=== PATIENT | male | born 1940 | race Caucasian/White ===

== ENCOUNTER 2019-01-10 15:50 | Inpatient (IN) | payer OTHER ==
[~2019-01-10] VITALS: Ht 180.3 cm; Wt 66.7 kg
[~2019-01-10 15:50] MED LIST: ASPIRIN EC325 M1 PO; ASPIRIN EC81 M1 PO; AVODART0.5 MG PO; CLOPIDOGREL75 MG PO; FLEXERIL PO; LEXAPRO20 MG PO; LYRICA200 MG PO; NEXIUM40 MG PO; RANEXA 500 MG500 M1 PO; SPIRIVA INH; TOPROL XL50 MG PO; UROXATRAL PO; XANAX 0.5 MG0.5 M1 PO; [UNRECOGNIZED DRUG - CODE] PO
[2019-01-10 16:30] VITALS: BP 146/58
[2019-01-10 17:26] LABS: HEMATOCRIT 35.9 % (42.0-52.0); HEMOGLOBIN 11.9 gm/dL (14.0-18.0); MCH 31.7 pg (26.0-34.0); MCHC 33.2 g/dL (28.0-37.0); MCV 95.3 fL (80.0-100.0); RBC 3.77 mil/uL (4.50-6.00); RDW 15.6 % (10.5-14.5); WBC 8.8 thou/uL (4.0-11.0)
[2019-01-10 17:41] LABS: CALCIUM 9.9 mg/dL (8.5-10.1); CREATININE 2.2 mg/dL (0.7-1.3); POTASSIUM 4.9 mmol/L (3.5-5.1)
[2019-01-10 17:43] LABS: INR 1.2; PROTIME 12.8 Seconds (9.3-11.4)
[2019-01-10 17:47] LABS: ALBUMIN 3.7 g/dL (3.4-5.0); TOTAL BILIRUBIN 0.5 mg/dL (<0.1-1.0); TOTAL PROTEIN 7.1 g/dL (6.4-8.2)
--- NOTE | 2019-01-10 18:51 | NUR ---
PT CARE ASSUMED APPROX 1530. PT DIRECT ADMIT UNDER DR MCCLELLAND FROM DR ECHEVARRIA'S OFFICE FOR BRADYCARDIA. PT NOTED TO BE IN AFLUTTER ON ARRIVAL. PT VS DIFFICULT TO OBTAIN DUE TO HR BEING VERY LOW. HR 20s. VS OTHERIWSE STABLE. PT ASYMPTOMATIC AT THIS TIME. STAS WAS INITIALLY WANTING TO SEND PT TO ICU AND PUT TO DOPAMINE GTT BUT ORDERS CHANGED AFTER VS GIVEN TO DR ECHEVARRIA'S NURSE. PT STABLE. DENIES PAIN AND SOA. UP WITH STEADY GAIT. ORIENTED TO UNIT AND ROOM. PT DENIES QUESTIONS OR CONCERNS REGARDING POC. IV PLACED 20G TO RIGHT FA. NO DISTRESS NOTED.
[2019-01-10 19:02] LABS: URINE BILIRUBIN NEGATIVE (Negative); URINE BLOOD TRACE (Negative); URINE CLARITY SL HAZY; URINE COLOR YELLOW; URINE GLUCOSE-RANDOM* NEGATIVE (Negative); URINE KETONES NEGATIVE (Negative); URINE LEUKOCYTES 2+ (Negative); URINE NITRITE NEGATIVE (Negative); URINE PROTEIN (DIPSTICK) 1+ (Negative); URINE UROBILINOGEN 0.2 E.U./dl (0.2-1.0)
[2019-01-10 19:04] LABS: BACTERIA 1-9 Few /HPF (None Seen); CASTS None Seen /LPF (None Seen); CRYSTALS None Seen /LPF (None Seen); SQUAMOUS None Seen /LPF (0-3); URINE RBC 0-2 Rare /HPF (0-2); URINE WBC 6-15 Few /HPF (0-5)
[2019-01-10 19:53] VITALS: BP 159/51
[2019-01-11] VITALS (7 sets, daily range): BP systolic 127–175; BP diastolic 46–70
--- NOTE | 2019-01-11 01:41 | NUR ---
PATIENT AOX4 MAKES NEEDS KNOWN. PATIENT HAS LOW PULSE OF <30 PATIENT IS STABLE THIS SHIFT. PATIENT DENIED PAIN OR DISCOMFORT. PATIENT IS STAND BY ASSIST THIS SHIFT. PATIENT AMBULATES TO THE BATHROOM WITH STEADY GAITS. PATIENT IN BED ASLEEP AT THIS TIME BREATHING REGULAR AND UNLABOURED.
--- NOTE | 2019-01-11 10:29 | 2DMMODE ---
[place] [address] [employer] [facility] [place] [address] 2 D/M-MODE ECHOCARDIOGRAM Name: DULCE CACERES A Room #: 214-P ADM IN .R.#: [id number] ������������� Admission: 01/10/19 ������������� Attend Phys: Adina Villalba MD Discharge: ��� ������������� ��� Date of : 38 Date of Service: 01/11/19 1029 �� Report #: [id number] �������� ��������������������������������������������[id number] THIS REPORT FOR: //name// APPROVED REPORT Study performed: 01/11/2019 08:12:42 EXAM: Comprehensive 2D, Doppler, and color-flow Echocardiogram Patient Location: Bedside Room #: 214 Status: on-call BSA: 1.82 HR: 28 bpm BP: 163/67 mmHg Rhythm: Atrial Fibrillation with slow response Other Information Study Quality: Good Indications Atrial Fibrillation Hx: CABG, Afib, TIA, HTN. 2D Dimensions RVDd: 42.66 mm IVSd: 11.48 (7-11mm) LVOT Diam: 23.33 (18-24mm) LVDd: 48.85 mm PWd: 11.41 (7-11mm) Ascending Ao: 39.81 (22-36mm) LVDs: 32.29 (25-40mm) Aortic Root: 37.89 mm Volumes Left Atrial Volume (Systole) Single Plane 4CH: 68.48 mL Single Plane 2CH: 87.69 mL LA ESV Index: 45.00 mL/m2 Aortic Valve AoV Peak Negrito.: 2.48 m/s AO Peak Gr.: 24.59 mmHg LVOT Max P.54 mmHg AO Mean Gr.: 9.69 mmHg AO V2 Mean: 1.41 m/s LVOT Max V: 0.80 m/s AO V2 VTI: 48.93 cm LONI Vmax: 1.37 cm2 Mitral Valve [facility] [address] [place] [address] 2 D/M-MODE ECHOCARDIOGRAM Name: DULCE CACERES Room #: 214-[facility] IN M.R.#: [id number] ������������� Admission: 01/10/19 ������������� Attend Phys: Adina Villalba MD Discharge: ��� ������������� ��� Date of : 39 Date of Service: 01/11/19 1029 �� Report #: [id number] �������� ��������������������������������������������[id number] MV Decel. Time: 139.94 ms MV E Max Negrito.: 1.07 m/s IVRT: 117.65 ms Pulmonary Valve PV Peak Negrito.: 0.93 m/s PV Peak Gr.: 3.44 mmHg Tricuspid Valve TR Peak Negrito.: 4.14 m/s RAP Estimate: 10.00 mmHg TR Peak Gr.: 68.49 mmHg PA Pressure: 78.00 mmHg Left Ventricle The left ventricle is normal size. There is normal LV segmental wall motion. There is normal left ventricular wall thickness. Left ventricular systolic function is normal. Mild hypokinesis base of inferior and inferolateral gutierrez. LVEF is 50-55%. This study is not technically sufficient to allow evaluation of the LV diastolic function. Right Ventricle Right ventricle is mildly dilated. The right ventricular systolic function is normal. Atria Left atrium is severely dilated. Right atrium is moderately dilated. Aortic Valve Aortic valve is moderately calcified. Mild to moderate aortic regurgitation. There is mild valvular aortic stenosis. Calculated aortic valve area is 1.4 cm2 with maximum pressure gradient of 25 mmHg and mean pressure gradient of 10 mmHg. Mitral Valve Moderate mitral annular calcification. Moderate mitral regurgitation. No evidence of mitral valve stenosis. Tricuspid Valve The tricuspid valve is normal in structure. Mild to moderate tricuspid regurgitation. Estimated PAP is 75mmHg. Pulmonic Valve The pulmonary valve is normal in structure. Trace to mild pulmonic regurgitation. [address] [address] 2 D/M-MODE ECHOCARDIOGRAM Name: DULCE CACERES David Room #: 214-P [facility] IN .R.#: [id number] ������������� Admission: 01/10/19 ������������� Attend Phys: Adina Villalba MD Discharge: ��� ������������� ��� Date of : 39 Date of Service: 01/11/19 1029 �� Report #: [id number] �������� ��������������������������������������������[id number] [employer] Aortic root is borderline dilated. The ascending aorta is mildly dilated (4.0cm). IVC is normal in size and collapses <50% with inspiration. Pericardium There is no pericardial effusion. <Conclusion> Left ventricular systolic function is normal. Mild hypokinesis base of inferior and inferolateral gutierrez. LVEF is 50-55%. Both atria are dilated. Aortic valve is moderately calcified, mildy stenotic. Mild to moderate aortic regurgitation.. Calculated aortic valve area is 1.4 cm2 with maximum pressure gradient of 25 mmHg and mean pressure gradient of 10 mmHg. Moderate mitral annular calcification. Moderate mitral regurgitation. Mild to moderate tricuspid regurgitation. Estimated pulmonary artery pressure of 75mmHg. There is no pericardial effusion. ��������������������������������������������� <ELECTRONICALLY SIGNED> ���������������������������������������� By: Micah Zavala MD, [facility] ��������������������������������������������� 01/11/19 1029 1029 1029 Micah Zavala MD, FAC /INF
--- NOTE | 2019-01-11 11:27 | EKG ---
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1940 Requested By: Micah Zavala Order Number: [id number] MD: Micah Zavala Measurements Intervals Jo[place] Rate: 28 P: [place]: QRS: 144 QRSD: 192 T: 23 QT: 676 QTc: 462 Interpretive Statements A-flutter/fibrillation w/ complete AV block RBBB and LPFB Compared to ECG 03/25/2012 11:22:15 Ventricular response has slowed axis has shifted rightward Electronically Signed On 01-11-2019 11:27:31 CDT by Micah Zavala [email or web address] ��������������������������������������������� <ELECTRONICALLY SIGNED> ���������������������������������������� By: Micah Zavala MD, [facility] ��������������������������������������������� 01/11/19 1127 0803 0803 Micah Zavala MD, [facility] /EPI
--- NOTE | 2019-01-11 16:29 | NUR ---
ASSUMED CARE AT CHANGE, ALERT AND ORIENTED X4. CHB ON THE MONITOR HR 28-40/MIN AND DR ECHEVARRIA IS AWARE. DENIES CP AND VSS. PATIENT ASYMPTOMATIC. AND WILL CONTINUE WITH POC.
[2019-01-12 04:30] VITALS: BP 163/84
--- NOTE | 2019-01-12 05:14 | NUR ---
PATIENTS CARES WERE ASSUMED AT SHIFT CHANGE. PATIENT WAS ASSESSED AND MEDS WERE PASSED. PATIENT REMAINS IN BEDREST DUE TO LOW HEART RATE. THEACHING FOCUS WAS ON CONSERVING ENERGY. PATIENT WILL NOT GET HEART SURGERY UNTIL sunday. HEART RATE IS 46 AT THIS TIME. HOURLY ROUNDING WAS DONE . PATIENT DID APPER TO BE SLEEPING. THE BED IS IN A LOW AND LOCKED POSITION, THE BED ALARM IS ON.
[2019-01-12 05:16] LABS: HEMATOCRIT 37.3 % (42.0-52.0); HEMOGLOBIN 12.4 gm/dL (14.0-18.0); MCH 31.7 pg (26.0-34.0); MCHC 33.2 g/dL (28.0-37.0); MCV 95.4 fL (80.0-100.0); RBC 3.91 mil/uL (4.50-6.00); RDW 15.8 % (10.5-14.5); WBC 10.1 thou/uL (4.0-11.0)
[2019-01-12 05:56] LABS: CALCIUM 9.7 mg/dL (8.5-10.1); CREATININE 1.8 mg/dL (0.7-1.3); POTASSIUM 4.3 mmol/L (3.5-5.1); TROPONIN-I 0.19 ng/mL (<0.06)
[2019-01-12 07:48] VITALS: BP 162/54
--- NOTE | 2019-01-12 09:58 | EKG ---
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 : 1940 Requested By: Micah Zavala Order Number: [id number] MD: Micah Zavala Measurements Intervals [place] Rate: 36 P: [place]: QRS: 104 QRSD: 143 T: 66 QT: 675 QTc: 523 Interpretive Statements Atrial fibrillation with a slow ventricular response Right bundle branch block Compared to ECG 01/11/2019 08:03:19 no significant change was found Electronically Signed On 01-12-2019 9:58:39 CDT by Micah Zavala [email or web address] ��������������������������������������������� <ELECTRONICALLY SIGNED> ���������������������������������������� By: Micah Zavala MD, [facility] ��������������������������������������������� 01/12/19 0958 4 4 Micah Zavala MD, [facility] /EPI
[2019-01-12 11:36] VITALS: BP 181/59
[2019-01-12 16:54] VITALS: BP 171/68
--- NOTE | 2019-01-12 17:42 | NUR ---
ASSUMED CARE AT SHIFT CHANGE, ALERT AND ORINETED X4. ASSESMENT DOCUMENTED. HEART RATE REMAINS LOW,ANXIOUS ABOUT TOMORROW PROCEDURE. PROCEDURE TEACHING WAS DONE AND PATIENT'S CONCERNS ADDRESSED. AND WILL CONTINUE WITH POC.
[2019-01-12 19:32] VITALS: BP 161/56
[2019-01-13] VITALS (7 sets, daily range): BP systolic 121–177; BP diastolic 50–89
[2019-01-13 04:54] LABS: CALCIUM 10.1 mg/dL (8.5-10.1); CREATININE 1.6 mg/dL (0.7-1.3); POTASSIUM 4.6 mmol/L (3.5-5.1)
--- NOTE | 2019-01-13 07:34 | NUR ---
pt anxiouse about pacemaker placement much reassurance and teaching done, am hibicleans bath given, vss, hr as low as 29, npo since mnoc, will con't to monitor per ppoc.
--- NOTE | 2019-01-13 08:00 | HC ---
[facility] [place] [address] CONSULTATION Name: DULCE CACERES Room #: 214-P ADM IN .R.#: [id number] Admission: 01/10/19 ������������������ Attend Phys: Adina Villalba MD Discharge: ������������������ Date of : 39 Report #: [id number] THIS REPORT FOR: //name// CC: Jc Villalba DATE OF SERVICE: 01/10/2019 REASON FOR CONSULTATION: Syncope. HISTORY OF PRESENT ILLNESS: The patient is a 78-year-old gentleman with a complicated history including bypass surgery in 2011 with a left internal mammary to the LAD, vein graft to the first and second marginal branches. His post-bypass course was complicated by atrial fibrillation, encephalopathy and acute kidney injury. His history also includes a TIA. It was around this same time that he was found to be back in atrial fibrillation and anticoagulant therapy with apixaban was started. He now presents following a syncopal episode. Last week, he suddenly lost consciousness. He crawled to his blood pressure cuff and found that his blood pressure was normal, but his heart rate was 28. He has felt poorly over the past week with exertional fatigue and occasional lightheadedness. He called the office today reporting that he thought that he was in heart block and he was seen in the office at which time he was found to be in atrial fibrillation with a very slow ventricular response. He has been on no AV annia blocking medications. He is now admitted for further evaluation and treatment including a pacemaker implantation. His last dose of apixaban was earlier this morning. He denies orthopnea or paroxysmal nocturnal dyspnea. No history of recurrent chest heaviness or pressure. MEDICATIONS: Include alprazolam, apixaban 5 mg twice daily, aspirin 81 mg daily, Flexeril as needed, Lasix 40 mg daily, losartan 100 mg daily, fish oil, AndroGel and tramadol as needed. 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 SOCIAL HISTORY: He is a former smoker. 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 FAMILY HISTORY: Notable for several parents with heart disease. Brother with cancer. REVIEW OF SYSTEMS: All systems negative except as that noted above. PHYSICAL EXAMINATION: [facility] [address] [place] [address] CONSULTATION Name: DULCE CACERES Room #: 214-P [facility] IN .R.#: [id number] Admission: 01/10/19 ������������������ Attend Phys: Adina Villalba MD Discharge: ������������������ Date of : 39 Report #: [id number] GENERAL: Reveals a pleasant elderly gentleman, in no distress. VITAL SIGNS: Blood pressure is 105/70, heart rate of 30 and regular, respirations unlabored at 18. HEENT: There are neither xanthelasma, subcutaneous xanthomata, oral mucosal or digital cyanosis or kyphoscoliosis present. CHEST: Clear to auscultation and percussion. CARDIAC: An irregularly irregular rhythm with a normal S1, S2. Heart rate is very bradycardic. ABDOMEN: Soft and nontender. EXTREMITIES: Without cyanosis, clubbing or edema. Radial pulses are 2+. NEUROLOGIC: He is alert with a nonfocal exam. EKG, atrial fibrillation with a slow ventricular response. LABORATORY DATA: Blood work remains pending. IMPRESSION: 1. Atrial fibrillation with a slow ventricular response with associated syncope. 2. Permanent atrial fibrillation. 3. Coronary artery disease with remote bypass. 4. Chronic obstructive pulmonary disease. 5. Dyslipidemia. 6. Hypertension, remote cardioembolic transient ischemic attack. 7. 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 8. Hypercoagulable. RECOMMENDATIONS: 1. Avoid AV annia blocking medications. 2. Echocardiogram with Doppler. 3. Thyroid function studies. 4. Consultation for single lead pacemaker implantation. My hope is to avoid temporary transvenous pacing. ��������������������������������������������� <ELECTRONICALLY SIGNED> ���������������������������������������� By: Micah Zavala MD, [facility] ��������������������������������������������� 01/13/19 0800 1620 2338 Micah Zavala MD, FACC /nt
--- NOTE | 2019-01-13 12:16 | EKG ---
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1940 Requested By: Otto Sagastume Order Number: [id number] MD: Otto Sagastume Measurements Intervals [place] Rate: 48 P: [place]: QRS: 144 QRSD: 188 T: 9 QT: 676 QTc: 605 Interpretive Statements A-flutter/fibrillation w/ complete AV block RBBB and LPFB Compared to ECG 01/12/2019 07:05:59 Electronically Signed On 01-13-2019 12:15:47 CDT by Otto Sagastume [email or web address] ��������������������������������������������� <ELECTRONICALLY SIGNED> ���������������������������������������� By: Otto Sagastume MD ��������������������������������������������� 01/13/19 1215 0857 0857 Otto Sagastume MD /BRII
--- NOTE | 2019-01-13 19:53 | NUR ---
ASSUMED CARE AT [facility] CHANGE, ALERT AND ORIENTED X4. BRADYCARDIAC, BP ELEVATEDAND DR MCMILLAN. S/P PACER MAKER TODAY, RT GRION SITE AND LT UPPER CHEST INTACT. PLS SEE POST CARDIAC CATH FOLLOW SHEET. LT ARM SLING INPLACE, AND PATIENT UNDERSTANDS THAT HE NEEDS TO KEEP LT ARM SLING INPLACE. AND WILL CONTINUE WITH POC.
--- NOTE | 2019-01-14 03:55 | NUR ---
pt resting in room quietly, incision remains cdi, no change to right groin dressing, vss with ventricular paced rhythm, tylenol given for aching pain in left shoulder, pt hoping to go home today. will con't to monitor per ppoc.
[2019-01-14 04:47] VITALS: BP 174/91
[2019-01-14 05:53] LABS: CALCIUM 10.4 mg/dL (8.5-10.1); CREATININE 1.5 mg/dL (0.7-1.3); POTASSIUM 4.5 mmol/L (3.5-5.1)
[2019-01-14 07:27] VITALS: BP 180/76
[2019-01-14] MEDS ORDERED: ELIQUIS5 MG PO (09:36)
[2019-01-14] MEDS ORDERED: COZAAR100 MG PO (09:49)
[2019-01-14 10:00] VITALS: BP 180/76
[2019-01-14 11:07] VITALS: BP 180/76
[2019-01-14 11:09] VITALS: BP 151/76
--- NOTE | 2019-01-14 11:52 | NUR ---
ASSUMED CARE AT SHIFT CHANGE, ALERT AND ORIENTED, AND ANXIOUS TO GO HOME. MORNING MEDS GIVEN FOR ELEVATED BP. DISCHARGE AND MEDICATION INSTRUCTIONS GIVEN TO PATIENT AND HE VERBALIZED UNDERSTANDING. AND PATIENT DISCHARGED HOME.
--- NOTE | 2019-01-22 12:11 | P ---
[facility] [place] [address] PROCEDURE REPORT Name: DULCE CACERES Room #: 214-P [facility] IN M.R.#: [id number] Admission: 01/10/19 ������������������ Attend Phys: Adina Villalba MD Discharge: 01/14/19 ������������������ Date of : 39 Report #: [id number] THIS REPORT FOR: //name// CC: Jc Villalba DATE OF SERVICE: 01/13/2019 PREOPERATIVE DIAGNOSES: 1. Complete heart block. 2. Syncope. POSTOPERATIVE DIAGNOSES: 1. Complete heart block. 2. Syncope. PROCEDURES PERFORMED: 1. Temporary pacing wire placement, CPT code 74810. 2. Single chamber VVI pacemaker implantation, CPT code 13384. HISTORY OF PRESENT ILLNESS: The patient is a 78-year-old male, with history of permanent atrial fibrillation, coronary artery disease, status post CABG, who recently had a syncopal episode and was found to be in complete heart block in clinic. He has a ventricular rate in the 20s-30s. He had an echocardiogram prior to pacemaker implantation showing normal ejection fraction. He is here for temporary wire placement followed by VVI pacemaker implantation. ANESTHESIA: The patient underwent MAC anesthesia with no anesthesia related complications. DESCRIPTION OF PROCEDURE: The patient underwent informed consent. We discussed the details of the procedure including the risk, which include, but not limited to, bleeding, infection, vascular damage, cardiac perforation and pneumothorax. He understood these risks and is willing to proceed. The patient was brought to the EP laboratory in a fasting and sedated state and prepped and draped in a sterile fashion. I first obtained access to the right femoral vein x 1 placing a 6-Nicaraguan short sheath and then placed a temporary pacing wire into the right ventricular apex. He had a stable threshold on the lead. Once we started pacing from the right ventricular apex, he was essentially pacer dependent. The patient was then prepped and draped in a sterile fashion and had undergone a venogram showing patency of the left axillary vein. He received IV antibiotics prior to initiation of the procedure. Next, I injected 20 mL of lidocaine below the level of left clavicle. Incision was made, pocket was created over the [facility] [address] [place] [address] PROCEDURE REPORT Name: DULCE CACERES Room #: 214-P [facility] IN M.R.#: [id number] Admission: 01/10/19 ������������������ Attend Phys: Adina Villalba MD Discharge: 01/14/19 ������������������ Date of : 39 Report #: [id number] prepectoral fascia and access was obtained once the left axillary vein using the extrathoracic approach. Sheath was positioned using the modified Seldinger technique and a lead was placed in the right ventricular mid septum with adequate pacing and sensing thresholds. The lead was sutured to the prepectoral fascia. The device was connected and found to be functioning normally and the pacemaker was placed in the pocket. Pocket was irrigated with vancomycin and then, the pocket was closed in 2 layers and surgical glue was placed to the outer skin layer. While I was closing the pocket, we did pull the temporary wire and hold pressure on the right groin until hemostasis was obtained. The patient awoke neurologically and hemodynamically intact. No complications and no significant bleeding. The implanted pacemaker was a [employer] model number [id number], serial number [id number] and the lead was a [employer] model number [id number], 58 cm, serial number [id number]. The R waves were 5.7 millivolts, pacing impedance was 540 ohms and the pacing threshold was 0.75 volts at 0.4 milliseconds. MRI compatible device was utilized due to his history of prior chemotherapy and radiation and the need for repeat MRIs. The pacemaker was programmed to the VVIR 60-130 mode. CONCLUSIONS: 1. Successful temporary pacemaker placement and removal. 2. Successful VVI pacemaker implantation. 3. Satisfactory right ventricular pacing and sensing thresholds. ��������������������������������������������� <ELECTRONICALLY SIGNED> ���������������������������������������� By: Otto Sagastume MD ��������������������������������������������� 01/22/19 1211 1526 2314 Otto Sagastume MD /nt
== END 2019-01-14 12:25 | disposition home or self-care (01) | DRG 242 ==
LOC: 2N 15:50 → ENTRNSPT 01-14 12:12 → EDTRNSPTSTS 01-14 12:14 → 2N 01-14 12:25
PROVIDERS: Hospitalist; Internal Medicine; ADMIT Internal Medicine
PROC: 5A1223Z Performance of Cardiac Pacing, Continuous (ICD-10-PCS; principal; 2019-01-13)
PROC: 0JH604Z Insertion of Pacemaker, Single Chamber into Chest Subcutaneous Tissue and Fascia, Open Approach (ICD-10-PCS; principal; 2019-01-13)
PROC: 02HK3JZ Insertion of Pacemaker Lead into Right Ventricle, Percutaneous Approach (ICD-10-PCS; principal; 2019-01-13)
PROC: B51N1ZZ Fluoroscopy of Left Upper Extremity Veins using Low Osmolar Contrast (ICD-10-PCS; principal; 2019-01-13)
DX: I44.2 Atrioventricular block, complete (principal); N17.0 Acute kidney failure with tubular necrosis; D68.59 Other primary thrombophilia; J44.9 Chronic obstructive pulmonary disease, unspecified; N40.0 Benign prostatic hyperplasia without lower urinary tract symptoms; N18.9 Chronic kidney disease, unspecified; Z60.2 Problems related to living alone; I49.5 Sick sinus syndrome; I48.2 Chronic atrial fibrillation; E78.5 Hyperlipidemia, unspecified; M62.838 Other muscle spasm; K21.9 Gastro-esophageal reflux disease without esophagitis; G62.9 Polyneuropathy, unspecified; F41.9 Anxiety disorder, unspecified; I25.10 Atherosclerotic heart disease of native coronary artery without angina pectoris; Z98.49 Cataract extraction status, unspecified eye; Z87.891 Personal history of nicotine dependence; Z82.49 Family history of ischemic heart disease and other diseases of the circulatory system; Z80.9 Family history of malignant neoplasm, unspecified; Z85.72 Personal history of non-Hodgkin lymphomas; Z88.8 Allergy status to other drugs, medicaments and biological substances; I25.2 Old myocardial infarction; Z86.73 Personal history of transient ischemic attack (TIA), and cerebral infarction without residual deficits; Z79.01 Long term (current) use of anticoagulants; Z79.82 Long term (current) use of aspirin; Z79.899 Other long term (current) drug therapy
CPT/HCPCS: 10081; 70005

== ENCOUNTER → 2019-01-21 | Outpatient (CLI) | payer OTHER ==
[~2019-01-21] MED LIST changes: +COZAAR100 MG PO; +ELIQUIS5 MG PO
[2019-01-21 08:58] LABS: ALBUMIN 3.1 g/dL (3.4-5.0); CALCIUM 9.3 mg/dL (8.5-10.1); CREATININE 1.6 mg/dL (0.7-1.3); POTASSIUM 3.7 mmol/L (3.5-5.1); TOTAL BILIRUBIN 0.6 mg/dL (<0.1-1.0); TOTAL PROTEIN 5.7 g/dL (6.4-8.2)
== END ==
LOC: RAD 08:10
PROVIDERS: Nurse Practitioner
DX: N18.9 Chronic kidney disease, unspecified (principal); I50.33 Acute on chronic diastolic (congestive) heart failure; Z95.0 Presence of cardiac pacemaker

== ENCOUNTER → 2019-11-25 | Outpatient (CLI) | payer OTHER | LOC: SJCVCIMAG 10-22 08:40 | PROVIDERS: ATTEND Internal Medicine | DX: I08.3 Combined rheumatic disorders of mitral, aortic and tricuspid valves (principal); I77.810 Thoracic aortic ectasia; I11.9 Hypertensive heart disease without heart failure; I65.23 Occlusion and stenosis of bilateral carotid arteries; R94.31 Abnormal electrocardiogram [ECG] [EKG]; I48.21 Permanent atrial fibrillation; I44.2 Atrioventricular block, complete; I25.810 Atherosclerosis of coronary artery bypass graft(s) without angina pectoris; I73.9 Peripheral vascular disease, unspecified; J43.1 Panlobular emphysema; E78.5 Hyperlipidemia, unspecified; Z95.0 Presence of cardiac pacemaker; Z95.1 Presence of aortocoronary bypass graft; Z82.49 Family history of ischemic heart disease and other diseases of the circulatory system; Z86.73 Personal history of transient ischemic attack (TIA), and cerebral infarction without residual deficits; Z79.01 Long term (current) use of anticoagulants; Z87.891 Personal history of nicotine dependence ==

== ENCOUNTER → 2020-05-31 | Outpatient (CLI) | payer OTHER | LOC: SJCVC 13:19 | PROVIDERS: ATTEND Internal Medicine | DX: R94.31 Abnormal electrocardiogram [ECG] [EKG] (principal); I25.10 Atherosclerotic heart disease of native coronary artery without angina pectoris; I48.21 Permanent atrial fibrillation; I73.9 Peripheral vascular disease, unspecified; I10 Essential (primary) hypertension; J43.1 Panlobular emphysema; E78.5 Hyperlipidemia, unspecified; G45.9 Transient cerebral ischemic attack, unspecified; I44.2 Atrioventricular block, complete; E78.00 Pure hypercholesterolemia, unspecified; Z95.1 Presence of aortocoronary bypass graft; Z95.0 Presence of cardiac pacemaker; Z79.01 Long term (current) use of anticoagulants; Z79.82 Long term (current) use of aspirin; Z79.899 Other long term (current) drug therapy; Z87.891 Personal history of nicotine dependence ==

== ENCOUNTER 2020-12-07 15:42 | Inpatient (IN) | payer OTHER ==
[~2020-12-07] VITALS: Ht 177.8 cm; Wt 81.9 kg
[2020-12-07 15:58] VITALS: BP 143/46
[2020-12-07 16:33] LABS: ABSOLUTE NEUTROPHILS 9.5 thou/uL (1.4-8.2); EOSINOPHILS 0.2 % (0.0-3.0); LYMPHOCYTES 6.1 % (24.0-44.0); MCV 87.4 fL (80.0-100.0); MONOCYTES 6.4 % (1.0-8.0); PLATELET COUNT 194 thou/uL (150-400); POLYS 86.3 % (36.0-66.0); RBC 2.22 mil/uL (4.50-6.00)
[2020-12-07 16:39] LABS: HEMOGLOBIN 6.2 gm/dL (14.0-18.0)
[2020-12-07 16:40] LABS: CALCIUM 8.7 mg/dL (8.5-10.1); CREATININE 2.1 mg/dL (0.7-1.3); HEMATOCRIT 19.4 % (42.0-52.0); POTASSIUM 4.6 mmol/L (3.5-5.1)
[2020-12-07 16:46] LABS: ALBUMIN 2.9 g/dL (3.4-5.0); TOTAL BILIRUBIN 0.5 mg/dL (0.2-1.0); TOTAL PROTEIN 6.1 g/dL (6.4-8.2)
[2020-12-07 16:49] LABS: APTT 22.2 Seconds (24.5-32.8); INR 1.25; PROTIME 13.5 Seconds (10.5-12.1)
[2020-12-07 17:09] LABS: ANISOCYTOSIS 1+
[2020-12-07] MEDS ORDERED: LYRICA200 MG PO (17:52)
[2020-12-07] MEDS ORDERED: PREGABALIN75 MG PO (17:53)
[2020-12-07] MEDS ORDERED: FUROSEMIDE 40 M40 MG PO (17:53)
[2020-12-07 18:02] VITALS: BP 133/49
[2020-12-07 18:40] VITALS: BP 134/53
--- NOTE | 2020-12-07 18:48 | NUR ---
PATIENT ARRIVED TO ROOM 215 AT 1848 WITHOUT COMPLICATION. UNSUCCESSFUL ATTEMPTS X2 FOR SECOND IV ACCESS FOR BLOOD TRANSFUSION, FLUIDS AND PROTONIX NEED. ONE PERIPHERAL LINE IN PLACE. VSS. REPORT TO BE GIVEN TO ONCOMING NURSE. WILL TRANSFUSE PRBC ONCE SECOND IV ACCESS IN PLACED. IV TEAM NOTIFIED OF NEED.
[2020-12-07 19:45] VITALS: BP 121/46
[2020-12-07 20:04] LABS: HEMATOCRIT 18.2 % (42.0-52.0); HEMOGLOBIN 5.8 gm/dL (14.0-18.0)
[2020-12-07 20:11] VITALS: BP 119/53; BP 121/46; BP 126/53
[2020-12-08] VITALS (19 sets, daily range): BP systolic 86–152; BP diastolic 38–90
[2020-12-08 00:30] LABS: WBC 8.8 thou/uL (4.0-11.0)
[2020-12-08 00:31] LABS: MCH 28.9 pg (26.0-34.0); MCHC 32.6 g/dL (28.0-37.0); MCV 88.8 fL (80.0-100.0); RBC 2.23 mil/uL (4.50-6.00); RDW 17.6 % (10.5-14.5)
[2020-12-08 00:48] LABS: HEMATOCRIT 19.8 % (42.0-52.0); HEMOGLOBIN 6.4 gm/dL (14.0-18.0)
[2020-12-08 01:01] LABS: ALBUMIN 2.6 g/dL (3.4-5.0); CALCIUM 8.2 mg/dL (8.5-10.1); POTASSIUM 4.6 mmol/L (3.5-5.1); TOTAL BILIRUBIN 0.5 mg/dL (0.2-1.0); TOTAL PROTEIN 5.3 g/dL (6.4-8.2)
--- NOTE | 2020-12-08 04:27 | NUR ---
PT ADMITTED TO THE FLOOR AT AROUND 1830, PT IS AWAKE, ALERT AND ORIENTEDX4, VPACED ON TELE, ADMISSION ASSESSMENT AND HX COMPLETED, BLOOD TRANFUSION INITIATED, PT C/O EPIGASTRIC PAIN WITH HEMOPTYSIS, PAIN AND NAUSEA MEDICINE GIVEN WITH PARTIAL RELIEF, REPEAT HGB 6.4, 2ND BLOOD TRANFUSION GIVEN, NO REACTIONS NOTED, PT IS LAYING IN BED, FEELING WEAK, WILL CONTINUE TO MONITOR, PLAN FOR EGD IN THE MORNING, REMAINS NPO
[2020-12-08 06:10] LABS: HEMATOCRIT 24.5 % (42.0-52.0); HEMOGLOBIN 7.8 gm/dL (14.0-18.0)
[2020-12-08 11:02] LABS: HEMATOCRIT 23.1 % (42.0-52.0); HEMOGLOBIN 7.5 gm/dL (14.0-18.0)
--- NOTE | 2020-12-08 12:49 | NUR ---
Cm reviewed chart and spoke with the care team. CM met with the patient at the bed side, introduced CM role. Patient lives in a single level home with 5 steps inside of the home;none to enter. Prior to admission he was independent with all ADLs and still drives. Patient does not use any DME but has been to rehab in the past. Son Shane (who lives in [place]) and friend [place] are both authorized contacts, but stated only his son Shane Barclay [phone] is his DPOA for health care ( Elaine has since passed). No recent falls have been stated by the patient. Health care directive and DPOA document is on the chart and current as per the patient. DC needs are uncertain at this time pending his progress. Pt here for GI bleed with possible EGD later today. Nursing has updated his son as he has called in for updates. Will ask for therapy evals as appropriate for possible hh/dme/or snf referrals.
--- NOTE | 2020-12-08 14:05 | NUR ---
PT IS AXO4, DROWSY; C/O PAIN IN ABDOMEN, HAS HAD SEVERAL EPISODES OF EMESIS CONTAINING FRESH BLOOD, NO COFFEE GROUNDS. VS BP HAS BEEN VARIED; AFEBRILE, V PACED ON MONITOR. DR REDDY CONSULTED. PT TO HAVE EGD THIS PM. WILL CONTINUE TO ASSESS AND MONITOR VS, LAB VALUES. FALL PRECAUTIONS IN PLACE. FREQUENT MONITORING.
[2020-12-08 15:13] LABS: HEMATOCRIT 21.3 % (42.0-52.0); MCH 29.5 pg (26.0-34.0); MCHC 32.8 g/dL (28.0-37.0); MCV 90.1 fL (80.0-100.0); RBC 2.36 mil/uL (4.50-6.00); RDW 17.6 % (10.5-14.5)
[2020-12-08 15:19] LABS: HCO3 17.3 mmol/L (22.0-26.0); PCO2 33.9 mmHg (35.0-45.0); sO2 99.8 % (92.0-98.0)
[2020-12-08 15:20] LABS: pH 7.326 (7.360-7.450)
[2020-12-08 15:20] LABS: CALCIUM 7.6 mg/dL (8.5-10.1); CREATININE 1.9 mg/dL (0.7-1.3)
[2020-12-08 15:26] LABS: ALBUMIN 2.7 g/dL (3.4-5.0); TOTAL BILIRUBIN 0.6 mg/dL (0.2-1.0); TOTAL PROTEIN 5.5 g/dL (6.4-8.2)
[2020-12-08 15:47] LABS: INR 1.34; PROTIME 14.4 Seconds (10.5-12.1)
--- NOTE | 2020-12-08 17:27 | NUR ---
PT ARRIVED FROM PACU TO THE ICU AT 1630. I REMOVED THE PT'S THREE RINGS AND PLACED THEM IN A LABELED ZIP LOCK BAG AND PLACED THEM WITH HIS BELONGINGS. ANKIT OCHOA FROM SPOKE TO THE SON AT 1650 AND DISCUSSED HOW THE PROCEDURE WENT AND WHAT THE PT'S CURRENT STATUS IS. ANKIT'S ORDERS ARE TO MONITOR HGB AND VITALS.
[2020-12-08 17:40] LABS: HEMATOCRIT 30.2 % (42.0-52.0)
[2020-12-08 17:41] LABS: HEMOGLOBIN 9.9 gm/dL (14.0-18.0)
[2020-12-09] VITALS (44 sets, daily range): BP systolic 83–149; BP diastolic 36–75
[2020-12-09 05:12] LABS: HCO3 16.2 mmol/L (22.0-26.0); PCO2 28.7 mmHg (35.0-45.0); PO2 160.1 mmHg (80.0-100.0); pH 7.369 (7.360-7.450)
[2020-12-09 05:22] LABS: HEMATOCRIT 26.6 % (42.0-52.0)
[2020-12-09 05:24] LABS: MCH 28.8 pg (26.0-34.0); MCHC 33.6 g/dL (28.0-37.0); MCV 85.7 fL (80.0-100.0); RBC 3.1 mil/uL (4.50-6.00); RDW 16.7 % (10.5-14.5); WBC 8.5 thou/uL (4.0-11.0)
[2020-12-09 05:37] LABS: CALCIUM 7.9 mg/dL (8.5-10.1); CREATININE 1.6 mg/dL (0.7-1.3); POTASSIUM 4.5 mmol/L (3.5-5.1)
--- NOTE | 2020-12-09 06:00 | NUR ---
REMAINS INTUBATED AND SEDATED WITH PROPOFOL. HAD TOTAL OF 5 SMALL BLACK TARRY STOOLS. INCONT OF A LG AMT URINE.FOLLOWXS SIMPLE COMMANDS. BECOMES VERY AGITATED AT TIMES PROGRESSING TOWARD GOALS.
--- NOTE | 2020-12-09 09:01 | NUR ---
ORDERS RECEIVED FOR PT EVAL AND TREAT. Pt TRANSFERRED TO ICU YESTERDAY AND HAS BEEN INTUBATED. Pt W/ UGI BLEED. D/T TRANSFER TO HIGHER LEVEL OF CARE, WILL NEED NEW ORDERS PRIOR TO INITIATING PT INTERVENTIONS ONCE Pt IS MEDICALLY STABLE TO PARTICIPATE.
--- NOTE | 2020-12-09 10:57 | NUR ---
PT INTUBATED AND SEDATED. FIO2 TITRATED DOWN BY PARACHUTE HARNESS RIGGER. SEDATION VACATION DONE FROM [id number] PT ABLE TO FSC. VERY AGITATED WITHOUT SEDATION. DRISCOLL PLACED BY RN. 10FR USED DUE TO PT'S UNUSUALLY SMALL URETHRA. PT AFEBRILE, ADEQUATE UOP, NO BM, NO NUTRITION ORDERED. PLAN IS FOR GI TO SCOPE THE PT AT BEDSIDE TODAY, I ASKED IF THEY WOULD PLACE AND CONFIRM AN OG TUBE FOR LIS. LEFT RADIAL ARTERIAL LINE IN PLACE AND FUNCTIONING WELL, NO S/S OF BLEEDING/INFECTION. RIGHT IJ IN PLACE, FUNCTIONING WELL WITH NO S/S OF INFECTION, DRESSING CHANGED BY IV ACCESS TEAM. PT HAS BEEN UPDATED AND EDUCATED ON CONDITION AND POC. ATTEMPTED TO CALL SON, NO ANSWER. PT SLOWLY PROGRESSING TOWARDS POC.
[2020-12-09 15:04] LABS: HEMOGLOBIN 9.3 gm/dL (14.0-18.0)
[2020-12-09 15:06] LABS: HEMATOCRIT 28.2 % (42.0-52.0)
[2020-12-09 15:12] LABS: CALCIUM 8.1 mg/dL (8.5-10.1); CREATININE 1.6 mg/dL (0.7-1.3); POTASSIUM 3.9 mmol/L (3.5-5.1)
--- NOTE | 2020-12-09 15:14 | NUR ---
Nutrition: If pt remains intubated, REC enteral feeds of Vital AF (elemental formula) to reach 65 mL/hr goal rate if GI agrees.
[2020-12-10] VITALS (13 sets, daily range): BP systolic 100–139; BP diastolic 51–67
[2020-12-10 04:42] LABS: BE(vivo) -4.9 mmol/L (-2 to +3); HCO3 18.8 mmol/L (22.0-26.0); PCO2 29.7 mmHg (35.0-45.0); pH 7.419 (7.360-7.450); sO2 98.8 % (92.0-98.0)
[2020-12-10 04:45] LABS: HEMOGLOBIN 8.5 gm/dL (14.0-18.0)
[2020-12-10 04:47] LABS: HEMATOCRIT 25.5 % (42.0-52.0); MCH 28.9 pg (26.0-34.0); MCHC 33.4 g/dL (28.0-37.0); MCV 86.6 fL (80.0-100.0); RBC 2.95 mil/uL (4.50-6.00); RDW 17.3 % (10.5-14.5); WBC 11.1 thou/uL (4.0-11.0)
[2020-12-10 05:28] LABS: CALCIUM 7.7 mg/dL (8.5-10.1); CREATININE 1.5 mg/dL (0.7-1.3); POTASSIUM 3.4 mmol/L (3.5-5.1)
[2020-12-10 07:17] LABS: BE(vivo) -5.2 mmol/L (-2 to +3); HCO3 18.8 mmol/L (22.0-26.0); PCO2 31.1 mmHg (35.0-45.0); PO2 117.2 mmHg (80.0-100.0); sO2 98.3 % (92.0-98.0)
--- NOTE | 2020-12-10 08:11 | NUR ---
ASSUMED CARE OF PT AT 0700 DR. ECHEVARRIA AT BEDSIDE AT 0714, NO NEW ORDERS GIVEN
--- NOTE | 2020-12-10 15:32 | NUR ---
SW reviewed chart and spoke with hospitalist. Pt remains in ICU. Intubated and sedated. Pt on precedex. Vent weaning trials to continue. No weekend discharge planned. SOLOMON is following to assist as needed with discharge planning.
[2020-12-11] VITALS (61 sets, daily range): BP systolic 100–129; BP diastolic 49–69
[2020-12-11 04:04] LABS: HEMOGLOBIN 8.8 gm/dL (14.0-18.0)
[2020-12-11 04:07] LABS: HEMATOCRIT 26.5 % (42.0-52.0); MCH 28.9 pg (26.0-34.0); MCHC 33.1 g/dL (28.0-37.0); MCV 87.3 fL (80.0-100.0); RBC 3.04 mil/uL (4.50-6.00); RDW 17.4 % (10.5-14.5); WBC 11.4 thou/uL (4.0-11.0)
[2020-12-11 04:09] LABS: CALCIUM 7.7 mg/dL (8.5-10.1); CREATININE 1.3 mg/dL (0.7-1.3); POTASSIUM 3.5 mmol/L (3.5-5.1)
--- NOTE | 2020-12-11 04:33 | NUR ---
PT IS PROGRESSING TOWARDS GOALS. WITH AM BATH, PATIENT WAS RESPONSIVE AND NODDING OR SHAKING HEAD TO QUESTIONS APPROPRIATELY. PATIENT WAS ABLE TO TURN FROM SIDE TO SIDE WITH MINIMAL ASSISTANCE AND MADE A PURPOSEFUL REACH FOR THE ETT. PATIENT REMAINS ON PRECEDEX AND IN RESTRAINTS FOR SAFETY. 3066 PATIENTS SON CALLED AND RECEIVED UPDATE ON POC.
--- NOTE | 2020-12-11 11:11 | P ---
[facility] [place] [address] PROCEDURE REPORT Name: DULCE CACERES Room #: 247-P ADM IN M.R.#: [id number] Admission: 12/07/20 Attend Phys: Qamar Shetty MD Discharge: Date of : 39 Report #: [id number] THIS REPORT FOR: cc: Jc Soto MD, Eric K. MD McElhinney, Christian C. MD ~ DOC #: [id number] cc: Qamar Shetty MD, Micah Zavala MD [facility] Von Coello MD DATE OF SERVICE: 12/08/2020 PROCEDURE PERFORMED: Upper endoscopy. INDICATIONS FOR PROCEDURE: The patient is an 80-year-old male with recent history of hematemesis as well as midepigastric abdominal pain, began having coffee-ground type emesis day before admission. Also had melanotic stool recently. He had been taking Eliquis for atrial fib. He was also taking ibuprofen, etc and Naprosyn for headaches 3-4 times per week. On admission, his hemoglobin was 6.2, this is up to 5.8. He then received 2 units of packed cells overnight. This increased to 7.8 this morning, a repeat at 10:48 this morning was 7.5. There was no further hematemesis this morning. However, recently he has had some nausea and vomiting with some hematemesis. Plan is for EGD. He is on a Protonix drip at this time. DESCRIPTION OF PROCEDURE: The risks and benefits of the procedure were explained to the patient's family, those risks including but not limited to bleeding, perforation and the risk of sedation. He understood these risks and gave informed consent. The patient was intubated and given a general anesthesia prior to the procedure to protect his airway. Next, using a standard Olympus upper endoscope, the scope was placed in the patient's mouth and advanced under direct vision through the esophagus, stomach and into the second portion of the duodenum. In the esophagus, there was a moderate amount of bright red blood and old blood. I was able to wash and aspirate this away. There was no active bleeding in the esophagus. No evidence of esophagitis or ulcerations. No evidence of varices. Upon entering the stomach, a large blood clot was noted throughout most of the stomach. This involved the fundus, the body and the antrum and significantly reduced my visualization, of the areas of the gastric mucosa that were able to be visualized, there was a mild gastritis. No evidence of active bleeding in the stomach. The clots appeared to be somewhat older and not fresh bright red blood, more dark in nature. The pylorus was normal and patent and the duodenal bulb, again several washings has to be made, but I was able to see a duodenal bulb ulcer. This was approximately 1.5 cm to 2 cm in diameter. For the most part had a clean white base. It did have a red dot but not an obvious visible vessel. There was no clot attached to the ulcer. I was able to advance the scope into the first and second portion of the duodenum. [facility] [address] [place] [address] PROCEDURE REPORT Name: DULCE CACERES Room #: 247-P [facility] IN M.R.#: [id number] Admission: 12/07/20 Attend Phys: Qamar Shetty MD Discharge: Date of : 39 Report #: [id number] Old blood was noted in this area as well. No further ulcerations were noted. I spent the next 15 minutes, looking for various other possible bleeding sites and did not see any, but again unable to tell if bleeding or if there were any abnormalities or ulcerations and recent bleeding from the gastric mucosa because of the large clot within the stomach. At this point, the liquid blood that was able to be aspirated away was done. The scope was then withdrawn and the procedure terminated. The patient tolerated the procedure well. IMPRESSION: 1. Large blood clot within the stomach, significantly limiting visualization of the patient's stomach. 2. Duodenal bulb ulcer. This may be the source of recent bleeding. There is no active bleeding from this ulcer. At this time, no visible vessel to cauterize, no evidence of clot attached to the ulcer. 3. No abnormality of the esophagus was noted. RECOMMENDATIONS: We will transfer the patient to the ICU. Continue to keep the patient intubated to protect his airway. I aspirated approximately 300-400 mL of old blood during the procedure, 2 units of packed cells have now been ordered. We will repeat labs at this time. Continue PPI drip and monitoring hemoglobin closely. If signs of continued bleeding, may need to consider interventional radiology for further evaluation of bleeding site versus a repeat upper endoscopy in the near future as well. Thank you for allowing me to participate in his care. Von Coello MD CCM/MUK <ELECTRONICALLY SIGNED> By: Von Coello MD 12/11/20 1111 1351 [id number] Von Coello MD /nt
--- NOTE | 2020-12-11 11:11 | P ---
[facility] [place] [address] [place] [address] PROCEDURE REPORT Name: DULCE CACERES Room #: 247-P [facility] IN M.R.#: [id number] Admission: 12/07/20 Attend Phys: Qamar Shetty MD Discharge: Date of : 39 Report #: [id number] THIS REPORT FOR: cc: Jc Soto MD,Von Latham MD, MD ~ DOC #: [id number] cc: Qamar Shetty MD, Micah Zavala MD [facility], MD Von Pompa MD DATE OF SERVICE: 12/09/2020 PROCEDURE PERFORMED: Upper endoscopy with bleeding control. HISTORY OF PRESENT ILLNESS: The patient is an 80-year-old male with upper GI bleed, who underwent an upper endoscopy by myself yesterday, large amount of old blood clot throughout the entire fundus and body of the stomach, which severely limited visualization yesterday. The areas of the stomach that were visualized showed gastritis. No active bleeding. He did have a duodenal bulb ulcer, but no signs of active bleeding. His esophagus was normal. He was given a total of 4 units of packed cells since admission. After the procedure, he was hypotensive yesterday and resuscitated. He was intubated prior to upper endoscopy yesterday to protect his airway. After the procedure, he stabilized quite well and was moved to the intensive care unit overnight. Overnight, he has had only a smear of melanotic stool. His hemoglobin is improved to a hemoglobin 9.0 at 5:00 this morning. This did drop slightly from 9.9 last night. He has been on a Protonix drip. His vital signs have been stable. He is sedated on a ventilator. Because I was not able to view the stomach well yesterday and the fact he may have a lesion within the stomach causing the significant bleed, the plan is to repeat upper endoscopy today. DESCRIPTION OF PROCEDURE: The risks and benefits of the procedure were explained to the patient's son. Those risks include damage, but not limited to bleeding, perforation and the risk of sedation. He understood these risks and gave informed consent. The procedure was performed in the intensive care unit at the bedside. Again, the patient is already on a ventilator at this time and is sedated with propofol. He was given 100 mcg of fentanyl prior to the procedure and increased his fentanyl rate as well. Next, using a standard Olympus upper endoscope, the scope was placed in the patient's mouth and advanced under direct vision through the esophagus, stomach and into the second portion of the duodenum. Once again, there was a mixture of darkish blood and some more bright red blood in his distal esophagus with clots. This was aspirated away. Again, no lesion or bleeding was noted in the esophagus, although he did continue to have a large clot in the stomach, it was much improved today. I was able to aspirate away a moderate amount of liquid, but a gelatinous clot remained. The body and antrum were showing again gastritis, but [facility] [address] [place] [address] PROCEDURE REPORT Name: DULCE CACERES Room #: 247-P ADM IN M.R.#: [id number] Admission: 12/07/20 Attend Phys: Qamar Shetty MD Discharge: Date of : 39 Report #: [id number] no other lesions. The pylorus was normal and patent. Once again in the duodenal bulb, the previously known ulcer was there. Again, no signs of active bleeding. The second portion of the duodenum was normal. I then brought the scope back into the patient's stomach and spent a fair amount of time performing some washings and aspirations. On retroflexion, I did find a lesion in his upper body of his stomach with a fresh adherent clot. There was a small amount of bright red blood nearby as well. This appears to be either a Dieulafoy lesion or fresh clot within an ulcer bed, it was approximately 6 mm in diameter. I treated this with a total of 3 mL of epinephrine injection and then used a 7-Romanian bipolar cautery. At one point, I attempted to place a clip, but due to the flat nature of the lesion, this would not be a good adequate clip type of lesion. Therefore, I proceeded with continued cautery. There was no evidence of bleeding after cauterization. At this point, the scope was then withdrawn and the procedure terminated. The patient tolerated the procedure well. IMPRESSION: 1. 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 Small amount of bright red blood nearby, a large old clot nearby, likely source of recent upper GI bleed. This was treated with both epinephrine and cauterization as described above. 2. Duodenal bulb ulcers were again noted. RECOMMENDATIONS: 1. Observe the patient post-procedure. 2. The plan is to continue to monitor hemoglobin closely. Continue PPI drip. Thank you for allowing me to participate in his care. Von Coello MD CCM/LORI/DARREN <ELECTRONICALLY SIGNED> By: Von Coello MD 12/11/20 1111 1402 36 Von Coello, /jemma
--- NOTE | 2020-12-11 16:31 | NUR ---
PATIENT UNABLE TO PASS CPAP TRIAL TODAY. PROPOFOL REINITITAED DUE TO INCREAESE SEDATION NEEDS. PATIENT CONTINUES ON PRECEDEX, PANTOPRAZOLE. NO S/S OF BLEEDING.
[2020-12-12] VITALS (48 sets, daily range): BP systolic 85–130; BP diastolic 47–65
[2020-12-12 04:43] LABS: WBC 9.7 thou/uL (4.0-11.0)
[2020-12-12 04:46] LABS: HEMATOCRIT 27.6 % (42.0-52.0); MCH 28.7 pg (26.0-34.0); MCHC 32.7 g/dL (28.0-37.0); MCV 87.9 fL (80.0-100.0); RBC 3.14 mil/uL (4.50-6.00); RDW 17.6 % (10.5-14.5)
[2020-12-12 04:58] LABS: CALCIUM 7.4 mg/dL (8.5-10.1); POTASSIUM 3.3 mmol/L (3.5-5.1)
[2020-12-12 09:06] LABS: BE(vivo) -5.2 mmol/L (-2 to +3); HCO3 18.1 mmol/L (22.0-26.0); PCO2 27.9 mmHg (35.0-45.0); PO2 96.7 mmHg (80.0-100.0); pH 7.431 (7.360-7.450); sO2 97.6 % (92.0-98.0)
--- NOTE | 2020-12-12 18:36 | NUR ---
PATIENT REMAINS INTUBATED. WILL ATTEMPT CPAP TRIALING TOMORROW. PROPOFOL AND PRECEDEX FOR SEDATION. ADEQUATE URINE OUTPUT. MOVES SPONTANEOUSLY. REPLACED POTASSIUM. SPOKE WITH SON ON PHONE TODAY AND GAVE UPDATE.
[2020-12-13] VITALS (25 sets, daily range): BP systolic 93–152; BP diastolic 46–78
--- NOTE | 2020-12-13 06:00 | NUR ---
VSS REMAINS INTUBATED AND SEDATED. AHN FOLLOWS COMMANDS. LUNGS REMAIN COARSE BILAT. PACED RHYTHM. 2000 CC UO THIS SHIFT. REMAINS ON PROTONIX GTT BATHED. PROGRESSING TOWARD GOALS
[2020-12-13 06:03] LABS: MCV 89.3 fL (80.0-100.0)
[2020-12-13 06:05] LABS: HEMATOCRIT 26.5 % (42.0-52.0); HEMOGLOBIN 8.9 gm/dL (14.0-18.0); MCH 29.9 pg (26.0-34.0); MCHC 33.5 g/dL (28.0-37.0); RBC 2.96 mil/uL (4.50-6.00); RDW 18.2 % (10.5-14.5); WBC 7.8 thou/uL (4.0-11.0)
[2020-12-13 06:12] LABS: CALCIUM 7.4 mg/dL (8.5-10.1); POTASSIUM 3.8 mmol/L (3.5-5.1)
[2020-12-13 10:59] LABS: ALBUMIN 1.7 g/dL (3.4-5.0); PHOSPHORUS 2.3 mg/dL (2.5-4.9)
--- NOTE | 2020-12-13 11:14 | NUR ---
SPOKE WITH PATIENT'S SON, HUBERT, FROM [id number] AND HE WAS UPDATED ON THE PATIENT'S CONDITION AND PLAN OF CARE.
--- NOTE | 2020-12-13 12:44 | NUR ---
PATIENT SELF EXTUBATED AT 1225. FACE MASK PLACED ON PATIENT AT 40%. PATIENT SATTING AT 100% CURRENTLY. ABRASIVE COATING MACHINE OPERATOR WAS CALLED AND MADE AWARE.
--- NOTE | 2020-12-13 13:59 | NUR ---
Discussed during los and am rounds. He cont. to be intubated, TPN for nutritional support. He will open his eyes and follow commands. Cont. with weaning trials. Will cont. following as needed for dc needs.
[2020-12-13 16:39] LABS: BE(vivo) -5.1 mmol/L (-2 to +3); PCO2 27.1 mmHg (35.0-45.0); PO2 154.8 mmHg (80.0-100.0); pH 7.441 (7.360-7.450); sO2 99.1 % (92.0-98.0)
[2020-12-14] VITALS (43 sets, daily range): BP systolic 78–181; BP diastolic 42–117
[2020-12-14 03:51] LABS: HEMOGLOBIN 9.2 gm/dL (14.0-18.0); WBC 11.9 thou/uL (4.0-11.0)
[2020-12-14 03:55] LABS: HEMATOCRIT 28.6 % (42.0-52.0); MCH 28.9 pg (26.0-34.0); MCHC 32.1 g/dL (28.0-37.0); MCV 89.9 fL (80.0-100.0); RBC 3.18 mil/uL (4.50-6.00)
--- NOTE | 2020-12-14 04:00 | NUR ---
PTS SON HUBERT FROM [facility] CALLED FOR AN UPDATE.
[2020-12-14 04:47] LABS: ALBUMIN 1.9 g/dL (3.4-5.0); CALCIUM 7.6 mg/dL (8.5-10.1); CREATININE 1.1 mg/dL (0.7-1.3); MAGNESIUM 1.9 mg/dL (1.8-2.4); PHOSPHORUS 2.6 mg/dL (2.5-4.9); POTASSIUM 3.9 mmol/L (3.5-5.1); TOTAL BILIRUBIN 0.4 mg/dL (0.2-1.0); TOTAL PROTEIN 5.7 g/dL (6.4-8.2)
--- NOTE | 2020-12-14 05:20 | NUR ---
REMAINS VERY CONGESTED, UNABLE TO CLEAR SECRETIONS. LASIX 40 MG IV GIVEN EARLY PER ORDER BIBIANA OCHOA
[2020-12-14 05:24] LABS: BE(vivo) -9.6 mmol/L (-2 to +3); HCO3 13.4 mmol/L (22.0-26.0); PO2 114.9 mmHg (80.0-100.0); pH 7.404 (7.360-7.450); sO2 98.3 % (92.0-98.0)
[2020-12-14 05:25] LABS: PCO2 21.9 mmHg (35.0-45.0)
--- NOTE | 2020-12-14 05:25 | NUR ---
PT SOUNDS MORE CONGESTED. BIBIANA PILLAR MAN NOTIFIED. LEFT ORDERS FOR ABG AND TO GIVE AM LASIX EARLY. CXRAY ORDERED. WILL CONT TO MONITOR.
--- NOTE | 2020-12-14 05:53 | NUR ---
AT 2210 PT EXTREMELY RESTLESS. HALDOL 1 MG IV GIVEN PER ORDER PERSONAL DEVELOPMENT MENTOR 2340 PT VERY CONGESTED. SCATTERED RHONCHI. DR SRINIVASAN NOTIFIED. LEFT ORDERS FOR SOLUMEDROL 80 MG Q6H AND STAT DOSE OF EPI AND RACEMIC. WILL CONT TO MONITOR. ATTEMPTED TO ORALLLY SUCTION PT.
--- NOTE | 2020-12-14 06:00 | NUR ---
PT SOUNDS SO MUCH BETTER AT THIS HOUR. DIURECING FROM LASIX. CRITICAL ABG TO DR SRINIVASAN PCO2 21. NO ORDERS AT THIS TIME. 650 CC UO THIS SHIFT. REMAINS ON PRECEDEX AT 1.4 MCG AND PROTONIX GTT TPN AT 60 CC/HR. FENTANYL X 2 TONIGHT. O2 SAT 97 % ON 60 % FACE AMSK. PROGRESSING TOWARD GOALS. WILL CONT TO MONITOR.
[2020-12-14 14:04] LABS: BE(vivo) -7.8 mmol/L (-2 to +3); HCO3 15.9 mmol/L (22.0-26.0); PCO2 27.2 mmHg (35.0-45.0); PO2 484.3 mmHg (80.0-100.0); pH 7.386 (7.360-7.450); sO2 99.9 % (92.0-98.0)
--- NOTE | 2020-12-14 14:28 | NUR ---
PATIENT'S SON, HUBERT, WAS CALLED FROM [id number] AND WAS INFORMED OF THE PLAN TO INUTBATE THE PATIENT. SON AGREED AND HIS QUESTIONS/CONCERNS WERE ADDRESSED.
--- NOTE | 2020-12-14 16:04 | NUR ---
NEW ORDERS RECEIVED FOR PT EVAL AND TREAT. Pt IN ICU AND SELF-EXTUBATED 12/13/20. CHECKED ON Pt EARLIER THIS PM AND Pt NEARING RE-INTUBATION. Pt WAS ULTIMATELY RE-INTUBATED AT [address] Pt BACK ON HOLD FOR PT SERVICES AND NEED NEW CONSULT ONCE Pt MEDICALLY APPROPRIATE AND ABLE TO PARTICIPATE W/ THERAPIES.
[2020-12-14 16:11] LABS: BE(vivo) -8.9 mmol/L (-2 to +3); HCO3 15.8 mmol/L (22.0-26.0); PCO2 30.4 mmHg (35.0-45.0); PO2 325.2 mmHg (80.0-100.0); pH 7.335 (7.360-7.450); sO2 99.7 % (92.0-98.0)
[2020-12-15] VITALS (22 sets, daily range): BP systolic 86–126; BP diastolic 45–68
[2020-12-15 05:28] LABS: HEMATOCRIT 25.7 % (42.0-52.0); HEMOGLOBIN 8.3 gm/dL (14.0-18.0); MCH 29.2 pg (26.0-34.0); MCHC 32.5 g/dL (28.0-37.0); RBC 2.85 mil/uL (4.50-6.00); RDW 18.5 % (10.5-14.5)
[2020-12-15 05:35] LABS: CALCIUM 8.2 mg/dL (8.5-10.1); CREATININE 1.3 mg/dL (0.7-1.3); MAGNESIUM 2.3 mg/dL (1.8-2.4); PHOSPHORUS 3.1 mg/dL (2.5-4.9); POTASSIUM 4.4 mmol/L (3.5-5.1)
--- NOTE | 2020-12-15 06:19 | NUR ---
PATIENT REMAINS INTUBATED AT SEDATED WITH FENTANYL AND PROPOFOL. LEVOPHED GTT OFF SINCE 12/14. HYPOACTIVE BOWEL SOUNDS, NO BM. TPN FOR NUTRITION. CONTINUE POC.
[2020-12-16] VITALS (24 sets, daily range): BP systolic 100–126; BP diastolic 37–57
[2020-12-16 05:11] LABS: HEMATOCRIT 25.4 % (42.0-52.0); MCH 28.8 pg (26.0-34.0); MCHC 31.5 g/dL (28.0-37.0); MCV 91.5 fL (80.0-100.0); RBC 2.77 mil/uL (4.50-6.00); RDW 19.5 % (10.5-14.5); WBC 20.6 thou/uL (4.0-11.0)
[2020-12-16 05:20] LABS: BE(vivo) -7.7 mmol/L (-2 to +3); HCO3 17.2 mmol/L (22.0-26.0); PCO2 32.5 mmHg (35.0-45.0); PO2 146.8 mmHg (80.0-100.0); pH 7.342 (7.360-7.450); sO2 98.8 % (92.0-98.0)
[2020-12-16 06:15] LABS: CALCIUM 8.5 mg/dL (8.5-10.1); CREATININE 1.4 mg/dL (0.7-1.3); POTASSIUM 4.7 mmol/L (3.5-5.1)
--- NOTE | 2020-12-16 06:56 | HC ---
[facility] [place] [address] [place] [address] CONSULTATION Name: DULCE CACERES Room #: [facility] IN M.R.#: [id number] Admission: 12/07/20 Attend Phys: Qamar Shetty MD Discharge: Date of : 39 Report #: [id number] THIS REPORT FOR: cc: Jc Soto MD, Eric K. MD Barry, Joseph W. MD ~ DOC #: [id number] Pawan Rios MD DATE OF SERVICE: 12/15/2020 INFECTIOUS DISEASE CONSULTATION ATTENDING PHYSICIAN: Dr. Shetty. REASON FOR EVALUATION: Acute on chronic respiratory failure secondary to suspected aspiration pneumonitis, maintained on ventilatory support. HISTORY OF PRESENT ILLNESS: This is an 80-year-old gentleman with no known vasculopathy and coronary artery disease, admitted through the emergency room with abdominal pain, nausea, emesis, was found to have upper gastrointestinal hemorrhage due to the Dieulafoy's ulcer associated with the gastric fundus. He had experienced respiratory failure, was intubated and subsequently extubated only to be reintubated on the due to worsening respiratory failure. Chest x-ray has been abnormal with bilateral infiltrates, perhaps more pronounced on the right base. Also, recent sputum culture with growth of susceptible Staphylococcus aureus, had been empirically on combination therapy with Zosyn and vancomycin. At this point, he is sedated on ventilatory support, FiO2 of 40%. He has not been febrile and has not required pressor support. ALLERGIES: Listed to LOVASTATIN. CURRENT MEDICATIONS: Include TPN, pantoprazole, p.r.n. analgesics, antiemetics, antianxiolytics, Zosyn. PAST MEDICAL HISTORY: Includes coronary artery disease with stenting, hypertension, dyslipidemia, previous history of non-Hodgkin's lymphoma in 2003, history of breast cancer in 2017. SOCIAL HISTORY: Former smoker, occasional ethanol, previous history of marijuana use. FAMILY HISTORY: Noncontributory. REVIEW OF SYSTEMS: Unobtainable. PHYSICAL EXAMINATION: [facility] [address] [place] [address] CONSULTATION Name: DULCE CACERES David Room #: [facility] IN [facility].#: [id number] Admission: 12/07/20 Attend Phys: Qamar Shetty MD Discharge: Date of : 39 Report #: [id number] GENERAL: Sedated and maintained on ventilatory support, appears chronically ill and undernourished, moderate distress. VITAL SIGNS: Temperature 98.7, pulse 75, respirations 29, blood pressure is 104/51. SKIN: Warm, dry, no rashes. HEENT: ET, OG in place. Has right-sided central venous catheter. LUNGS: Few scattered coarse breath sounds. HEART: Regular with ectopy. I do not appreciate a murmur. ABDOMEN: Mildly distended, somewhat firm. No peritoneal signs. GENITOURINARY AND RECTAL: Deferred. LABORATORY AND X-RAY DATA: Sputum cultures confirmed 2 samples with Staphylococcus aureus, awaiting susceptibilities on the second, the first was susceptible, in vitro to beta lactams. X-ray showed persistent bilateral multifocal partially consolidative infiltrates, noticed at right base. Electrolytes: Sodium 144, potassium 4.4, chloride 112, bicarbonate 21, anion gap of 11, BUN and creatinine 41 and 1.3. CBC: White count of 17.0, H and H 8.3 and 25.7, platelets 168. ABGs at time of intubation, pH 7.335, pCO2 of 30.4, pO2 of 325.2 on 100%. ASSESSMENT: Pneumonitis, complicated by respiratory failure, apparently on a basis of recent aspiration. His isolation of Staph aureus could certainly fit this pattern of severity of illness. PLAN: We will adjust antimicrobial treatment, utilize Unasyn in this setting. We will await to follow up susceptibility results. He remains tenuous at this point. Continue to monitor expectantly. He is at risk for additional complications. In the event of any worsening, we would pursue additional diagnostic testing. Pawan Rios MD JWB/JAVIER <ELECTRONICALLY SIGNED> By: Pawan Rios MD 12/16/20 0656 1445 [id number] Pawan Rios MD /nt
--- NOTE | 2020-12-16 08:31 | NUR ---
ON THE VENT LIGHTLY SEDATED. VITALS STABLE, NO CONCERNS NOTED AT THIS TIME. TPN FOR NUTRITION. WILL CONTINUE WITH POC.
--- NOTE | 2020-12-16 11:15 | NUR ---
Discussed during los and am rounds. Increase in WBC, had cxr. Remains on vent, TPN for nutritional support. Ex- dain here to visit and stay as long as needed, son is primary contact who is updating family. Family has been trying to get him to move closer to [place] where family is. Dain # [phone]. Cm active listening and support during visit, noted she was tearful during visit. will cont following as needed for dc needs. No anticipated dc over the weekend. will reassess next week for dc needs.
--- NOTE | 2020-12-16 22:15 | NUR ---
ASSUMED CARE AT 1900. PT HAD MODERATE-SMALL LIQUID BLACK STOOL. NOTED TO HAVE TEMP OF 102.5. PLACED OG AND VERIFIED W/KUB, GAVE TYLENOL PER TUBE FOR TEMP. OG AT 56 CM. PT VERY CONGESTED W/ BLOOD-TINGED SECRETIONS FROM IN-LINE SUCTION. WILL CONTINUE TO MONITOR.
[2020-12-17] VITALS (23 sets, daily range): BP systolic 104–145; BP diastolic 47–66
[2020-12-17 04:42] LABS: BE(vivo) -5.8 mmol/L (-2 to +3); PCO2 40.7 mmHg (35.0-45.0); PO2 110.6 mmHg (80.0-100.0); sO2 97.7 % (92.0-98.0)
[2020-12-17 04:54] LABS: HEMATOCRIT 26.2 % (42.0-52.0); HEMOGLOBIN 8.3 gm/dL (14.0-18.0); MCH 28.9 pg (26.0-34.0); MCHC 31.6 g/dL (28.0-37.0); MCV 91.3 fL (80.0-100.0); RBC 2.87 mil/uL (4.50-6.00); RDW 19.2 % (10.5-14.5); WBC 24.4 thou/uL (4.0-11.0)
[2020-12-17 05:31] LABS: CALCIUM 8.9 mg/dL (8.5-10.1); CREATININE 1.6 mg/dL (0.7-1.3); MAGNESIUM 2.8 mg/dL (1.8-2.4); PHOSPHORUS 4.6 mg/dL (2.5-4.9)
--- NOTE | 2020-12-17 07:30 | NUR ---
PT SON CALLED. UPDATE GIVEN. EMOTIONAL SUPPORT GIVEN.
--- NOTE | 2020-12-17 10:31 | NUR ---
DR. KIDD HERE. UPDATE GIVEN. REPORTED AGONAL BREATHING OFF DIPRIVAN.
--- NOTE | 2020-12-17 11:43 | NUR ---
REPORT GIVEN TO ONCOMING NURSE. DR. SRINIVASAN HERE AND UPDATED. DR. SRINIVASAN WANTS TO KEEP FENTANYL AT 75MCG AND RESTRAINTS ON. MD STATES HE WILL UPDATE SON.
--- NOTE | 2020-12-17 12:09 | NUR ---
Cont. review, discussed during los and am rounds. Vented, nutritional support. Elevated temp. No anticipated dc over the weekend will cont. following as needed for dc needs.
[2020-12-17 12:22] LABS: ALBUMIN 1.9 g/dL (3.4-5.0); DIRECT BILIRUBIN 0.7 mg/dL (<0.1-0.2); TOTAL BILIRUBIN 0.9 mg/dL (0.2-1.0)
[2020-12-18] VITALS (13 sets, daily range): BP systolic 98–143; BP diastolic 53–67
--- NOTE | 2020-12-18 03:08 | NUR ---
ASSUMED CARE AT 1900. PT HAVING MODERATE AMTS STRINGY, CLEAR SECRETIONS, OCCASIONALLY BLOOD-TINGED. BP SLIGHTLY HIGHER OVERNIGHT, GAVE MIDNIGHT DOSE OF LOPRESSOR, WHICH PT TOLERATED. ATTEMPTED TO COLLECT A C.DIFF STOOL SAMPLE BUT ONLY A SMEAR WAS PRESENT, NOT ENOUGH TO RUN A TEST. WILL CONTINUE TO MONITOR.
[2020-12-18 04:54] LABS: CALCIUM 8.8 mg/dL (8.5-10.1); CREATININE 1.6 mg/dL (0.7-1.3); POTASSIUM 5.5 mmol/L (3.5-5.1)
[2020-12-18 04:58] LABS: MAGNESIUM 2.9 mg/dL (1.8-2.4); PHOSPHORUS 5.1 mg/dL (2.5-4.9)
[2020-12-18 05:06] LABS: HEMOGLOBIN 8.2 gm/dL (14.0-18.0); MCH 28.7 pg (26.0-34.0); MCHC 31.4 g/dL (28.0-37.0); MCV 91.4 fL (80.0-100.0); RBC 2.84 mil/uL (4.50-6.00); RDW 19.8 % (10.5-14.5); WBC 23.1 thou/uL (4.0-11.0)
[2020-12-18 05:26] LABS: BE(vivo) -5.9 mmol/L (-2 to +3); HCO3 20.1 mmol/L (22.0-26.0); PCO2 41.6 mmHg (35.0-45.0); PO2 124.1 mmHg (80.0-100.0); sO2 98.1 % (92.0-98.0)
[2020-12-18 05:27] LABS: pH 7.301 (7.360-7.450)
--- NOTE | 2020-12-18 10:04 | NUR ---
SPOKE W/ PT'S SON, HUBERT, WHO CALLED FROM [facility] FOR AN UPDATE ON PT CONDITION. QUESTIONS ANSWERED. WILL ATTEMPT TO COORDINATE A PHONE MEETING WITH THE PHYSICIAN, HUBERT AND PT'S LATER TODAY.
--- NOTE | 2020-12-18 18:08 | NUR ---
PT REMAINS SEDATED AND ON THE VENTILATOR. VENT SETTINGS TITRATED PT TOLERATED. SEDATION TITRATED FOR VENTILATOR TOLERANCE. URINE OUTPUT ADEQUATE, VITAL SIGNS STABLE. PT GUARDED BUT PROGRESSING TOWARD GOALS.
[2020-12-19] VITALS (23 sets, daily range): BP systolic 104–169; BP diastolic 47–85
--- NOTE | 2020-12-19 02:53 | NUR ---
ASSESSMENT: PT REMAIN INTUBATED WITH VENT SETTINGS UNCHANGED: TV 550, AC 16, PEEP 5, FIO2 30%. MINIMAL SUCTION PER ETT, WHITISH/TANNISH SECRETIONS., ORAL SECRETIONS WHITISH IN COLOR. NO BM, C-DIFF SAMPLE STILL PENDING. LOW GRAD TEMP 99.0 PER RECTAL TUBE. WRIST RESTRAINTS INTACT. RIGHT IJ INTACT WITH DRESSING C/D/I. DRISCOLL PATENT WITH ADEQUATE UO PER HOUR. OG TUBE REMAINS CLAMPED. V-PACED PER MONITOR. LUNG SOUNDS COARSE/DIM. SON CALLED AT APPROXIMATELY 0130 FOR AN UPDATE OF PT, THE SON PROVIDED THE PT'S PROPER CODE NUMBER. WILL CONTINUE TO MONITOR.
[2020-12-19 04:25] LABS: BE(vivo) -7.9 mmol/L (-2 to +3); HCO3 17.2 mmol/L (22.0-26.0); PCO2 33.6 mmHg (35.0-45.0); PO2 113.1 mmHg (80.0-100.0); sO2 97.9 % (92.0-98.0)
[2020-12-19 04:26] LABS: pH 7.327 (7.360-7.450)
[2020-12-19 05:20] LABS: HEMATOCRIT 24.3 % (42.0-52.0); HEMOGLOBIN 7.6 gm/dL (14.0-18.0); MCH 28.6 pg (26.0-34.0); MCHC 31.3 g/dL (28.0-37.0); MCV 91.3 fL (80.0-100.0); RBC 2.66 mil/uL (4.50-6.00); RDW 20.2 % (10.5-14.5); WBC 18.2 thou/uL (4.0-11.0)
[2020-12-19 05:42] LABS: CREATININE 1.5 mg/dL (0.7-1.3)
[2020-12-19 05:47] LABS: POTASSIUM 5.4 mmol/L (3.5-5.1)
[2020-12-19 07:44] LABS: MAGNESIUM 2.9 mg/dL (1.8-2.4); PHOSPHORUS 4.5 mg/dL (2.6-4.7)
[2020-12-19 16:33] LABS: HCO3 19.7 mmol/L (22.0-26.0); PCO2 35.4 mmHg (35.0-45.0); PO2 88.1 mmHg (80.0-100.0); pH 7.364 (7.360-7.450); sO2 96.5 % (92.0-98.0)
[2020-12-20] VITALS (23 sets, daily range): BP systolic 84–171; BP diastolic 41–76
[2020-12-20 04:16] LABS: HEMATOCRIT 26.9 % (42.0-52.0); HEMOGLOBIN 8.6 gm/dL (14.0-18.0); MCHC 31.8 g/dL (28.0-37.0); MCV 91.3 fL (80.0-100.0); RBC 2.95 mil/uL (4.50-6.00); RDW 19.6 % (10.5-14.5)
[2020-12-20 04:18] LABS: CALCIUM 9.2 mg/dL (8.5-10.1); CREATININE 1.5 mg/dL (0.7-1.3); POTASSIUM 5.7 mmol/L (3.5-5.1)
--- NOTE | 2020-12-20 06:10 | NUR ---
ASSESSMENT: PT REMAIN SEDATED ON PRECEDEX AND FENTANYL FOR VENT MANAGEMENT. TYLENOL GIVEN PER OG TUBE FOR ELEVATED TEMP. STOOL STILL PENDING FOR R/O OF C-DIFF. SON HUBERT CALLED THIS AM FOR STATUS UPDATE. HUBERT WAS VERY APPRECIATIVE OF INFORMATION GIVEN TO HIM. VENT SETTINGS REMAIN UNCHANGED: TV 550 AC 16 FIO2 30% WITH PEEP 5. MODERATE AMTS OF ORAL SUCTIONING (TANNISH, THICK) SCANT-MINIMAL AMTS PER ETT, (WHITISH, THICK). PER THE SON HUBERT, PT HAS A CHRONIC ISSUE WITH RESTLESS LEG SYNDROME. SLOW PROGRESS TOWARDS DC GOALS, WILL CONTINUE TO MONITOR. PRN HYDRALAZINE GIVEN FOR SBP > 160 SUSTAINED.
[2020-12-20 08:21] LABS: BE(vivo) -7.3 mmol/L (-2 to +3); HCO3 18.9 mmol/L (22.0-26.0); PCO2 40.7 mmHg (35.0-45.0); PO2 87.3 mmHg (80.0-100.0); sO2 95.6 % (92.0-98.0)
[2020-12-20 08:22] LABS: pH 7.284 (7.360-7.450)
--- NOTE | 2020-12-20 10:45 | NUR ---
ASSUMED CARE OF PT AT 0700 ROUNDING TEAM AT BEDSIDE AT 0845, ORDERS FOR LASIX GIVEN DUE TO ELEVATED K+ DIETARY WILL CONSULT GI TO SEE IF TUBE FEED CAN BE STARTED 0945 DR. REDDY AT BEDSIDE, NO NEW ORDERS GIVEN. [address]
--- NOTE | 2020-12-20 15:53 | NUR ---
Discussed during am rounds and los with hospitalist. Cont to required vent and nutritional support TPN. Ct of abd today. Will cont following as needed for dc needs. bedside nurse has provided updates to family.
[2020-12-21] VITALS (59 sets, daily range): BP systolic 75–177; BP diastolic 33–86
[2020-12-21 04:29] LABS: BE(vivo) -5.8 mmol/L (-2 to +3); HCO3 19.1 mmol/L (22.0-26.0); pH 7.354 (7.360-7.450)
[2020-12-21 06:53] LABS: HEMATOCRIT 27.7 % (42.0-52.0); PLATELET COUNT 299 thou/uL (150-400); RBC 3.04 mil/uL (4.50-6.00); RDW 19.1 % (10.5-14.5)
[2020-12-21 06:55] LABS: HEMOGLOBIN 8.6 gm/dL (14.0-18.0); MCH 28.3 pg (26.0-34.0); MCHC 31.1 g/dL (28.0-37.0); MCV 91.2 fL (80.0-100.0); WBC 19.2 thou/uL (4.0-11.0)
[2020-12-21 07:21] LABS: ALBUMIN 1.7 g/dL (3.4-5.0); CALCIUM 9.5 mg/dL (8.5-10.1); CREATININE 1.5 mg/dL (0.7-1.3); POTASSIUM 5.6 mmol/L (3.5-5.1); TOTAL BILIRUBIN 1.3 mg/dL (0.2-1.0); TOTAL PROTEIN 6.5 g/dL (6.4-8.2)
[2020-12-21 08:27] LABS: ABSOLUTE NEUTROPHILS 17.7 thou/uL (1.4-8.2); ANISOCYTOSIS 1+; NUCLEATED RBCS 5 /100WBC; PLATELET ESTIMATE NORMAL
[2020-12-21 14:50] LABS: CLARITY CLOUDY; COLOR YELLOW; SOURCE LEFT LUNG; TOTAL VOLUME 22 mL
[2020-12-21 15:09] LABS: BF NUCLEATED CELLS 145 /mm3; BF RBC 600 /mm3
[2020-12-21 16:05] LABS: BF NUCLEATED CELLS 146 /mm3; BF RBC 192 /mm3
[2020-12-21 16:15] LABS: CLARITY CLEAR; TOTAL VOLUME 15 mL
[2020-12-21 16:16] LABS: COLOR YELLOW
[2020-12-21 16:18] LABS: BF MACROPHAGE 24 %; BF NEUTROPHILS 35 %
[2020-12-21 16:44] LABS: BF MACROPHAGE 7 %; BF NEUTROPHILS 12 %
--- NOTE | 2020-12-21 18:17 | NUR ---
PATIENT HAD X1 DOSE OF ALBUMIN AND LASIX TODAY. WENT TO IR FOR THORACENTESIS OF RIGHT SIDE; 100O CC DRAINED AND CULTURED. LEFT LATERAL CHEST TUBE PLACED, 500 CC SEROUS FLUID DRAINED WITHIN TWO HOURS. PRESSURES WERE SOFT, 75/50S AFTER RETURNING, DOPAMINE GTT STARTED TO TITRATE FOR MAP >55, SYS >100. PATIENT BECAME HYPOTHERMIC AT 93.3 F, ADRIAN HUGGER PLACED AND NEXT HOUR WAS 94.5 F. X1 DOSE KAEXELATE ADMINISTERED, ALONG WITH D5W FOR K+ 5.6.
[2020-12-21 19:13] LABS: SOURCE CHEST
[2020-12-22] VITALS (77 sets, daily range): BP systolic 106–178; BP diastolic 44–77
--- NOTE | 2020-12-22 03:30 | NUR ---
This RN spoke to solomon Lynn at 0330 for 15 minutes. Discussed patient status and care plan. Will continue to monitor.
[2020-12-22 04:39] LABS: HEMOGLOBIN 8.2 gm/dL (14.0-18.0)
[2020-12-22 04:41] LABS: HEMATOCRIT 25.8 % (42.0-52.0); MCH 28.6 pg (26.0-34.0); MCV 89.4 fL (80.0-100.0); RBC 2.88 mil/uL (4.50-6.00); RDW 18.8 % (10.5-14.5); WBC 14.1 thou/uL (4.0-11.0)
[2020-12-22 05:15] LABS: ALBUMIN 1.9 g/dL (3.4-5.0); CALCIUM 8.9 mg/dL (8.5-10.1); CREATININE 1.4 mg/dL (0.7-1.3); PHOSPHORUS 4.5 mg/dL (2.5-4.9)
[2020-12-22 05:23] LABS: POTASSIUM 4.1 mmol/L (3.5-5.1)
--- NOTE | 2020-12-22 07:54 | NUR ---
PATIENT HAS INCREASE WORK OF BREATHING 25-30 MIN. WILL CONTINE MONITOR.
--- NOTE | 2020-12-22 09:51 | NUR ---
5858- nurse updated patients dpoa, Shane Barclay, over the phone on cxray, fluid volume goals, and chest tube output as well as care plan. His questions were answered and he had to take another call on his line. Nurse to continue to answer family questions as they arise.
--- NOTE | 2020-12-22 11:19 | NUR ---
Report given to LIEN Haddad in ICU for continuation of care.
[2020-12-22 16:06] LABS: BODY FLUID ALBUMIN 0.5 g/dL (Not Estab.); BODY FLUID AMYLASE 8 U/L (()); BODY FLUID GLUCOSE 116 mg/dL (()); BODY FLUID GLUCOSE 118 mg/dL (()); BODY FLUID LDH 84 IU/L (()); BODY FLUID LDH 94 IU/L (())
[2020-12-22 18:52] LABS: MAGNESIUM 2.5 mg/dL (1.8-2.4); POTASSIUM 3.8 mmol/L (3.5-5.1)
--- NOTE | 2020-12-22 20:15 | NUR ---
PT NOT MOVINIG TOWARDS GOALS. AGONAL RESP. ONLY WITHDRAWS TO PAIN.
--- NOTE | 2020-12-22 20:46 | NUR ---
SV FROM [id number], PT RR INCREASED SLIGHTLY FROM 18 TO 21, WITHDRAWS EASILY TO PAINFUL STIMULI TO BL FEET, REQUIRES DEEP PAINFUL STIMULI TO BL HANDS. PT BECAME INCREASINGLY LABORED, EYES DEVIATED TO L AND DID NOT TRACK RN, CORNEAL, GAG AND COUGH ALL INTACT. APPROXIMATELY 2029, AFTER FENTANYL TURNED BACK ON, THIS RN ASKED PT A QUESTION AND PT SHOOK HIS HEAD AND FOCUSED ON RN. NODDED WHEN ASKED IF HE WAS IN PAIN.
[2020-12-23] VITALS (16 sets, daily range): BP systolic 116–173; BP diastolic 47–73
--- NOTE | 2020-12-23 09:00 | NUR ---
Chart review, discussed during am round. He cont. require vent, trying sedation vac. nutritional support and still has chest tube. bedside nurse spoke with pt son, who lives out of town. No anticipated dc over the weekend. will cont following as needed for dc needs.
[2020-12-23 09:38] LABS: HEMATOCRIT 24.8 % (42.0-52.0); HEMOGLOBIN 7.8 gm/dL (14.0-18.0); MCH 28.2 pg (26.0-34.0); MCHC 31.7 g/dL (28.0-37.0); MCV 89.2 fL (80.0-100.0); RBC 2.78 mil/uL (4.50-6.00); RDW 18.8 % (10.5-14.5)
[2020-12-23 09:41] LABS: CREATININE 1.3 mg/dL (0.7-1.3)
[2020-12-23 09:42] LABS: ALBUMIN 2.7 g/dL (3.4-5.0); CALCIUM 8.7 mg/dL (8.5-10.1); POTASSIUM 3.3 mmol/L (3.5-5.1); TOTAL BILIRUBIN 0.7 mg/dL (0.2-1.0)
[2020-12-23 11:04] LABS: SOURCE CHEST
[2020-12-24] VITALS (67 sets, daily range): BP systolic 99–160; BP diastolic 42–71
--- NOTE | 2020-12-24 07:22 | NUR ---
PATIENT IS 24 @ TEETH. SMALL PINK/WHITE FROTH WHEN SUCTION. DOCTOR NOTIFIED. PATIENT AWAKE. HOLISTER CHANGED ON THE .
[2020-12-24 10:00] LABS: HEMATOCRIT 22.3 % (42.0-52.0); HEMOGLOBIN 7.3 gm/dL (14.0-18.0); MCH 29.5 pg (26.0-34.0); MCHC 32.7 g/dL (28.0-37.0); MCV 90.2 fL (80.0-100.0); PLATELET COUNT 224 thou/uL (150-400); RBC 2.48 mil/uL (4.50-6.00); RDW 19.7 % (10.5-14.5); WBC 10.9 thou/uL (4.0-11.0)
[2020-12-24 10:12] LABS: ALBUMIN 3.6 g/dL (3.4-5.0); CALCIUM 9.1 mg/dL (8.5-10.1); CREATININE 1.3 mg/dL (0.7-1.3); POTASSIUM 3.3 mmol/L (3.5-5.1); TOTAL BILIRUBIN 0.7 mg/dL (0.2-1.0); TOTAL PROTEIN 6.7 g/dL (6.4-8.2)
[2020-12-24 13:46] LABS: ABSOLUTE NEUTROPHILS 9.9 thou/uL (1.4-8.2); ANISOCYTOSIS 2+; METAMYELOCYTES 1 %
[2020-12-25] VITALS (88 sets, daily range): BP systolic 99–153; BP diastolic 47–82
[2020-12-25 04:39] LABS: ABSOLUTE NEUTROPHILS 10.9 thou/uL (1.4-8.2); BASOPHILS 0.8 % (0.0-2.0); EOSINOPHILS 1.1 % (0.0-3.0); HEMATOCRIT 22.9 % (42.0-52.0); HEMOGLOBIN 7.4 gm/dL (14.0-18.0); LYMPHOCYTES 4.4 % (24.0-44.0); MCH 28.8 pg (26.0-34.0); MCHC 32.2 g/dL (28.0-37.0); MCV 89.5 fL (80.0-100.0); MONOCYTES 3.4 % (1.0-8.0); PLATELET COUNT 230 thou/uL (150-400); POLYS 90.3 % (36.0-66.0); RBC 2.56 mil/uL (4.50-6.00)
[2020-12-25 04:45] LABS: BE(vivo) 2.7 mmol/L (-2 to +3); HCO3 25.4 mmol/L (22.0-26.0); PCO2 31.4 mmHg (35.0-45.0); PO2 108.7 mmHg (80.0-100.0); pH 7.526 (7.360-7.450); sO2 98.5 % (92.0-98.0)
[2020-12-25 05:12] LABS: ALBUMIN 3.4 g/dL (3.4-5.0); CALCIUM 8.9 mg/dL (8.5-10.1); CREATININE 1.3 mg/dL (0.7-1.3); POTASSIUM 3.2 mmol/L (3.5-5.1); TOTAL BILIRUBIN 0.6 mg/dL (0.2-1.0); TOTAL PROTEIN 6.3 g/dL (6.4-8.2)
[2020-12-25 17:00] LABS: BF NUCLEATED CELLS 871 /mm3; BF RBC 36096 /mm3
[2020-12-25 17:26] LABS: CLARITY CLOUDY; COLOR RED; TOTAL VOLUME 20 mL
[2020-12-25 18:04] LABS: SOURCE LUL BAL
[2020-12-25 18:11] LABS: BF MACROPHAGE 0 %; BF NEUTROPHILS 99 %
--- NOTE | 2020-12-25 18:40 | NUR ---
HAD A BRONCHOSCOPY TODAY AND TOLERARTED WELL. DOES NO SEEM TO BE IN PAIN. CONT ON TRACH. BP CONTROLLED. WILL CONT WITH PLAN OF CARE.
[2020-12-26] VITALS (54 sets, daily range): BP systolic 83–139; BP diastolic 36–63
--- NOTE | 2020-12-26 06:00 | NUR ---
REMAINS INTUBATED AND SEDATED. EYES OPEN FOLLOWS COMMANDS 2100 CC UO THIS SHIFT. PACED RHYTHM. HAD A SMALL BLACK TARRY STOOL THIS AM. PROGRESSING TOWARD GOALS
[2020-12-26 06:10] LABS: ABSOLUTE NEUTROPHILS 11.5 thou/uL (1.4-8.2); BASOPHILS 0.4 % (0.0-2.0); HEMATOCRIT 22.9 % (42.0-52.0); HEMOGLOBIN 7.2 gm/dL (14.0-18.0); LYMPHOCYTES 4.1 % (24.0-44.0); MCH 28.6 pg (26.0-34.0); MCHC 31.6 g/dL (28.0-37.0); MCV 90.3 fL (80.0-100.0); MONOCYTES 3.1 % (1.0-8.0); PLATELET COUNT 213 thou/uL (150-400); POLYS 89.4 % (36.0-66.0); RBC 2.53 mil/uL (4.50-6.00); RDW 19.7 % (10.5-14.5); WBC 12.8 thou/uL (4.0-11.0)
[2020-12-26 06:24] LABS: ALBUMIN 3.5 g/dL (3.4-5.0); CALCIUM 8.8 mg/dL (8.5-10.1); CREATININE 1.3 mg/dL (0.7-1.3); POTASSIUM 3.1 mmol/L (3.5-5.1); TOTAL BILIRUBIN 0.7 mg/dL (0.2-1.0); TOTAL PROTEIN 6.4 g/dL (6.4-8.2)
[2020-12-26 09:14] LABS: BE(vivo) 3.4 mmol/L (-2 to +3); HCO3 28.3 mmol/L (22.0-26.0); PCO2 44.8 mmHg (35.0-45.0); PO2 72.2 mmHg (80.0-100.0); pH 7.418 (7.360-7.450); sO2 94.7 % (92.0-98.0)
--- NOTE | 2020-12-26 13:37 | NUR ---
PATIENT WAS TRIALED TODAY ON 12/04 30% FIO2. HE BEGAN THE TRIAL AT 0722 AND TRIAL CONCLUDED AT 927. MR CACERES MAINTAINED HIS SATURATIONS AND TRIALED WELL. HE WAS UNABLE TO EXTUBATED DUE TO A NIF OF -17 AND MUSCLE FATIGUE. HE WAS PLACED BACK ON HIS PREVIOUS SETTINGS PER DR GUILLAUME. HE WILL BE HAVING CONVERSATIONS DETAILING NEXT STEPS WITH FAMILY.
[2020-12-27] VITALS (53 sets, daily range): BP systolic 43–161; BP diastolic 17–83
[2020-12-27 04:28] LABS: BE(vivo) 3.9 mmol/L (-2 to +3); HCO3 28.6 mmol/L (22.0-26.0); PCO2 43.8 mmHg (35.0-45.0); PO2 322.2 mmHg (80.0-100.0); pH 7.433 (7.360-7.450); sO2 99.7 % (92.0-98.0)
[2020-12-27 05:51] LABS: ABSOLUTE NEUTROPHILS 11.5 thou/uL (1.4-8.2); BASOPHILS 0.9 % (0.0-2.0); EOSINOPHILS 1.7 % (0.0-3.0); HEMATOCRIT 21.9 % (42.0-52.0); LYMPHOCYTES 3.2 % (24.0-44.0); MCHC 31.9 g/dL (28.0-37.0); MCV 91.2 fL (80.0-100.0); MONOCYTES 2.9 % (1.0-8.0); PLATELET COUNT 211 thou/uL (150-400); POLYS 91.3 % (36.0-66.0); RDW 19.9 % (10.5-14.5); WBC 12.6 thou/uL (4.0-11.0)
[2020-12-27 06:11] LABS: ALBUMIN 4.1 g/dL (3.4-5.0); CALCIUM 9.4 mg/dL (8.5-10.1); CREATININE 1.4 mg/dL (0.7-1.3); TOTAL BILIRUBIN 0.9 mg/dL (0.2-1.0); TOTAL PROTEIN 6.9 g/dL (6.4-8.2)
[2020-12-27 09:40] LABS: ANISOCYTOSIS 2+; HYPOCHROMASIA 1+
--- NOTE | 2020-12-27 10:50 | NUR ---
Nutrition: REC change tube feeding formula to Vital AF at 65 mL/hr. Hypokalemia past several days requiring repletion and Nepro is low K+ enteral formula-do not feel indicated anymore. pt would also benefit from higher protein formula recommended.
--- NOTE | 2020-12-27 10:51 | NUR ---
PT IS PROGRESSING TOWARDS DISCHARGE, FIO2 LOWERED FROM 35 TO 30% PT DID NOT TOLERATE CPAP TRIAL THIS MORNING, VERY WEAK AND POOR AIRWAY CLEARANCE, POTASSIUM IS 3.0 AND IS BEING REPLACED AT THIS TIME. TRENDING LOWER H/H ADDRESSED BY LIEN ORR TO ADMINISTER BLOOD PRODUCT AT A LATER TIME. RN SAW THE AT BEDSIDE AND SPOKE, SHE/SON WANTS TO PROCEED WITH THE TRACH/PEG PROCEDURE
--- NOTE | 2020-12-27 15:07 | PATH ---
[facility] [address] [place] [address] PATHOLOGY RPT PROCEDURE Name: DULCE CACERES Room #: 241-P ADM IN M.R.#: [id number] Admission: 12/07/20 Date of : 38 Discharge: Report #: [id number] Path Case #: [id number] Note [facility] Accession Number: [id number] TESTS RESULT FLAG UNITS REF RANGE LAB Clinician Provided Cytology Information No. of containers..01 Other (Miscellaneous) Source: CHEST DIAGNOSIS: 02 CHEST (PLEURAL FLUID) NEGATIVE FOR MALIGNANT EPITHELIAL CELLS. REACTIVE MESOTHELIAL CELLS ARE PRESENT. THIS INTERPRETATION INCLUDES EVALUATION OF A CELL BLOCK. MILD CHRONIC INFLAMMATION IN THE BACKGROUD. Pathologist ICD10: 02 J90 Signed out by: 02 Angelia Otero MD, Pathologist NPI- [id number] Performed by: Wendy Donaldson, Manufacturer'S Representative ([facility]) Gross description: 01 5ML, CLEAR YELLOW, 1 TP /LCS 12/22/2020 0059 Local FLAG LEGEND: L-Low Normal,H-High Normal,LL-Alert Low,HH-Alert High <-Panic Low,>-Panic High,A-Abnormal,AA-Critical Abnormal Performed at: [address] [place] [address] Ja Bryant MD, [address] [address] Angelia Otero MD, Specimen Comment: A courtesy copy of this report has been sent to [phone] Specimen Comment: [phone], Specimen Comment: Report sent to ,DR CLARK / DR ECHEVARRIA Specimen Comment: A duplicate report has been generated due to demographic updates. Performed at: [address], [place] [id number] [address] [address] PATHOLOGY RPT PROCEDURE Name: DULCE CACERES Room #: 241-P [facility] IN M.R.#: [id number] Admission: 12/07/20 Date of : 38 Discharge: Report #: [id number] Path Case #: [id number] [place] [facility] Phone: [phone]
--- NOTE | 2020-12-27 15:20 | NUR ---
Chart review. discussed during am rounds and los. Remains on vent and nutritional support . MD to discuss with family about trach/peg. Cm visited with son lyssa, who is in [place] for work and hopeful to finish work and get to head here to be with his dad. He had question and trach and pet, he stated he spoke with Dr bolden via phone call. Cm education on next level if he does get trach and peg, ie [facility] ( [facility]). Will cont following as needed for dc needs.
[2020-12-28] VITALS (46 sets, daily range): BP systolic 70–134; BP diastolic 41–88
[2020-12-28 04:37] LABS: ALBUMIN 4.1 g/dL (3.4-5.0); CALCIUM 8.8 mg/dL (8.5-10.1); CREATININE 1.6 mg/dL (0.7-1.3); PHOSPHORUS 2.8 mg/dL (2.5-4.9); POTASSIUM 3.6 mmol/L (3.5-5.1)
[2020-12-28 07:16] LABS: HEMOGLOBIN 6.9 gm/dL (14.0-18.0)
[2020-12-28 07:19] LABS: HEMATOCRIT 21.3 % (42.0-52.0)
--- NOTE | 2020-12-28 10:12 | NUR ---
PROGRESSING TOWARDS DISCHARGE, PT TO BE SEEN BY , WAS CONSULTED YESTEREDAY. SON HUBERT CACERES(DPOA) WAS UPDATED, WOULD LIKE TO KNOW WHEN ROUNDS AND WOULD LIKE TO SPEAK WITH HIM, RN TO COORDINATE WHEN POSSIBLE. PT HAS BEEN STEADILY DROPPING H/H LEVEL, WAS TO TRANSFUSE YESTERDAY BUT WAS CONSENTED TODAY SO WILL PROCEED WITH THAT. PER HOLD OFF ON TUBE FEEDING UNTIL GI CLEARS, WAS STATED THAT HE WILL CONTACT GI FOR CONTINUATION
[2020-12-28 15:23] LABS: HEMATOCRIT 24.6 % (42.0-52.0); HEMOGLOBIN 8.1 gm/dL (14.0-18.0)
[2020-12-29] VITALS (45 sets, daily range): BP systolic 78–152; BP diastolic 42–85
--- NOTE | 2020-12-29 08:39 | NUR ---
PT'S SON HUBERT CACERES (DPOA) CALLED AND REQUESTED TO SPEAK WITH , HAVING SOME QUESTIONS PRIOR TO SURGERY. RN REACHED OUT TO AND NOTIFIED, AND SENT PHONE NUMBER STATING SUCH.
[2020-12-29 12:19] LABS: MCH 30.1 pg (26.0-34.0); MCHC 33.2 g/dL (28.0-37.0); MCV 90.6 fL (80.0-100.0); RBC 2.65 mil/uL (4.50-6.00); RDW 19.2 % (10.5-14.5); WBC 8.5 thou/uL (4.0-11.0)
[2020-12-30] VITALS (43 sets, daily range): BP systolic 82–160; BP diastolic 46–80
[2020-12-30 05:13] LABS: ABSOLUTE NEUTROPHILS 5.1 thou/uL (1.4-8.2); BASOPHILS 2.5 % (0.0-2.0); EOSINOPHILS 10.4 % (0.0-3.0); HEMATOCRIT 23.1 % (42.0-52.0); HEMOGLOBIN 7.6 gm/dL (14.0-18.0); LYMPHOCYTES 6.9 % (24.0-44.0); MCV 91.1 fL (80.0-100.0); MONOCYTES 3.6 % (1.0-8.0); PLATELET COUNT 191 thou/uL (150-400); POLYS 76.6 % (36.0-66.0); RBC 2.53 mil/uL (4.50-6.00); RDW 18.8 % (10.5-14.5); WBC 6.6 thou/uL (4.0-11.0)
[2020-12-30 05:13] LABS: BE(vivo) -3.1 mmol/L (-2 to +3); PCO2 28.6 mmHg (35.0-45.0); PO2 272.9 mmHg (80.0-100.0); pH 7.462 (7.360-7.450); sO2 99.7 % (92.0-98.0)
[2020-12-30 05:27] LABS: ALBUMIN 3.8 g/dL (3.4-5.0); CALCIUM 8.3 mg/dL (8.5-10.1); CREATININE 2.5 mg/dL (0.7-1.3); POTASSIUM 3.8 mmol/L (3.5-5.1); TOTAL BILIRUBIN 0.8 mg/dL (0.2-1.0); TOTAL PROTEIN 6.1 g/dL (6.4-8.2)
--- NOTE | 2020-12-30 07:26 | NUR ---
RN ATTEMPTED TO CALL PRAKASH GASPAR ON CELL PHONE LISTED FOR CONSENT FOR J -TUBE PLACEMENT BUT NO ANSWER. NO MESSAGE WAS ABLE TO BE LEFT DUE TO CELL PHONE MAILBOX BEING FULL. WILL ATTEMPT TO CALL AGAIN.
--- NOTE | 2020-12-30 08:10 | NUR ---
RN SPOKE WITH PT'S SON AND DPJAGJIT GASPAR AND GOT CONSENT FOR JTUBE PLACEMENT, 2ND RN SPOKE WITH PT WELL AND GOT CONSENT. HUBERT IS REQUESTING PHONE CALL UPDATE FROM GI.
--- NOTE | 2020-12-30 09:37 | NUR ---
Nutrition: following J tube placement, REC use of Vital AF formula to reach goal of 65 mL/hr. Prior use of Nepro not indicated with current labs and also will likely not be tolerated via J tube due to high concentration. Vital AF is elemental formula.
--- NOTE | 2020-12-30 11:07 | NUR ---
PT'S X- IS VISITING IN ROOM WITH PT AND HAS PT'S SON ON THE PHONE.
--- NOTE | 2020-12-30 12:13 | NUR ---
1210- PT TO SURGERY
--- NOTE | 2020-12-30 13:35 | NUR ---
Cm visited with son lyssa r/t ltac location again. He wants to look at 3 here and then will let cm team know where to send referral by sunday12/31/20. will cont following as needed for dc needs. Lyssa would like to know if there is any LTAC in [place] to get dad closer to family?.
--- NOTE | 2020-12-30 18:26 | NUR ---
PT HAD J-TUBE PLACED TODAY IN L UPPER ABD. SITE HAS SCANT AMOUNT OF BLOODY DRAINAGE PRESENT. RN APPLIED ABD BINDER ORDERED. L CHEST TUBE REMAINS IN PLACE WITH SEROUS DRAINAGE. PT HAD VERY LOW URINE OUTPUT TODAY. RN CALLED DR GUILLAUME AND HE IS AWARE. PT NEEDS FREQUENT ORAL CARE AND HAS VERY THICK ORAL SECRETIONS THAT NEED SUCTIONING. PT'S X- CAME THIS AM AND STAYED AT BEDSIDE FOR A FEW HOURS. PT'S SON CALLED RN THIS AM AND REQUESTED A CALL BACK FROM GI. WAS INFORMED AND CALLED PT'S SON BACK WHILE ON UNIT. PT'S BILAT ARMS ARE WEEPING AND ARE EDEMTOUS AND ELEVATED WITH USE OF PILLOWS.
[2020-12-31] VITALS (28 sets, daily range): BP systolic 99–144; BP diastolic 55–76
--- NOTE | 2020-12-31 06:43 | NUR ---
PTS SON CALLED AT 0230 AND WAS GIVEN EXTENSIVE UPDATED ON POC. PATIENT REMAINS ON PRECEDEX AND FENTANYL GTT. PATIENT OCCASIONALLY BECOMES RESTLESS, OPENS HEAD, AND SHAKES HEAD FROM SIDE TO SIDE. NO PURPOSEFUL MOVEMENTS. TUBE FEEDS STARTED THRU J TUBE WITH NO COMPLICATIONS. DRESSING CHANGED ON LAP/J TUBE SITE R/T SEROSANGUINEOUS DRAINAGE. 210 ML OUT OF CHEST TUBE. NO BM. MARGINAL UOP.
[2020-12-31 08:23] LABS: CALCIUM 8.5 mg/dL (8.5-10.1); CREATININE 3.1 mg/dL (0.7-1.3); POTASSIUM 4.2 mmol/L (3.5-5.1)
[2020-12-31 08:34] LABS: BE(vivo) -6.6 mmol/L (-2 to +3); HCO3 16.7 mmol/L (22.0-26.0); PCO2 26.4 mmHg (35.0-45.0); PO2 68.5 mmHg (80.0-100.0); sO2 94.4 % (92.0-98.0)
[2020-12-31 09:07] LABS: HEMATOCRIT 24.7 % (42.0-52.0); HEMOGLOBIN 8.2 gm/dL (14.0-18.0); MCH 29.9 pg (26.0-34.0); MCHC 33.2 g/dL (28.0-37.0); MCV 90.3 fL (80.0-100.0); RBC 2.74 mil/uL (4.50-6.00); RDW 18.9 % (10.5-14.5); WBC 9.3 thou/uL (4.0-11.0)
--- NOTE | 2020-12-31 09:37 | NUR ---
Pt ex- at bedside crying. States she has his living will paperwork and is looking over it because she "wouldn't want to live with no quality of life either so I need to see what he (pt) really wants". States she spoke with son, Shane, this AM over the phone as well about plan of care. Encouraged to ask questions and speak with whatever department she needs. Son is unable to come to bedside as he is working in [place] and COVID restrictions will not allow him to travel.
--- NOTE | 2020-12-31 10:02 | NUR ---
Son Shane on FaceTime via his mother at bedside. Fentanyl is off, pt currently on 0.4 of Dex. Copy of DPOA/Living Will paperwork on chart from ex-.
[2020-12-31 12:27] LABS: BE(vivo) -6.7 mmol/L (-2 to +3); HCO3 16.3 mmol/L (22.0-26.0); PCO2 25.1 mmHg (35.0-45.0); PO2 87.5 mmHg (80.0-100.0); pH 7.431 (7.360-7.450); sO2 97.1 % (92.0-98.0)
--- NOTE | 2020-12-31 14:00 | NUR ---
Chart review discussed during am rounds and los. Trach with vent support, j tube for nutritional support. Cm left message with son lyssa to see which LTAC, family want referral sent to. No anticipated dc over the weekend. Will cont. following as needed for dc needs.
[2021-01-01] VITALS (23 sets, daily range): BP systolic 102–169; BP diastolic 64–80
[2021-01-01 04:14] LABS: HEMATOCRIT 27.6 % (42.0-52.0); HEMOGLOBIN 9.2 gm/dL (14.0-18.0); MCHC 33.4 g/dL (28.0-37.0); MCV 89.9 fL (80.0-100.0); RBC 3.07 mil/uL (4.50-6.00); RDW 19.4 % (10.5-14.5); WBC 10.7 thou/uL (4.0-11.0)
[2021-01-01 04:28] LABS: ALBUMIN 3.7 g/dL (3.4-5.0); CALCIUM 9.2 mg/dL (8.5-10.1); CREATININE 3.1 mg/dL (0.7-1.3); POTASSIUM 4.4 mmol/L (3.5-5.1); TOTAL BILIRUBIN 0.8 mg/dL (0.2-1.0)
--- NOTE | 2021-01-01 05:51 | NUR ---
SON UPDATED EXTENSIVELY ON POC. PATIENT REMAINS OFF OF FENTANYL AND PRECEDEX. PRN MORPINE AND HALDOL GIVEN THROUGHOUT THE NIGHT. SEE MAR FOR INTERVENTIONS. PATIENT REMAINED AWAKE ALL NIGHT. PATIENT DOES NOT RESPOND OR TRACK WITH EYES. PATIENT DOES NOT FOLLOW COMMANDS. PATIENT TOLERATED CPAP VIA TRACH THROUGHOUT THE NIGHT.
--- NOTE | 2021-01-01 11:44 | NUR ---
Pt ex- at bedside on FaceTime with son who is in [place].
[2021-01-02] VITALS (23 sets, daily range): BP systolic 113–146; BP diastolic 52–69
--- NOTE | 2021-01-02 06:00 | NUR ---
REMAINS TRACHED AND VENTED EYES OPEN ALL NIGHT. NO SEDATION REQUIRED. SPOKE WITH PTS SON AT LENGHT THIS AM. 1000 CC UO 60 CC CHEST TUBE DRG. NOT PROGRESSING TOWARD GOALS
[2021-01-02 06:49] LABS: HEMOGLOBIN 8.7 gm/dL (14.0-18.0); MCH 29.8 pg (26.0-34.0); MCHC 33.4 g/dL (28.0-37.0); MCV 89.4 fL (80.0-100.0); RBC 2.9 mil/uL (4.50-6.00); RDW 20.1 % (10.5-14.5)
[2021-01-02 06:51] LABS: CALCIUM 9.2 mg/dL (8.5-10.1); POTASSIUM 3.8 mmol/L (3.5-5.1)
--- NOTE | 2021-01-02 10:49 | NUR ---
Ex-/DPOA at bedside, requesting to make pt no code/DNR after discussing current status. Dr. Cohen updated, code status changed.
--- NOTE | 2021-01-02 11:09 | NUR ---
CARSON Henry at bedside, asking to speak with MD about turning off pacemaker/general status update. Per CARSON, son will be in town by Sunday to help discuss transition to comfort care. Dr.Majara beckham, awaiting response.
--- NOTE | 2021-01-02 12:21 | NUR ---
CARSON Henry to take pt belongings home - backpack with laptop and files, wallet, clothes, and workbooks.
[2021-01-03] VITALS (24 sets, daily range): BP systolic 114–147; BP diastolic 50–71
--- NOTE | 2021-01-03 05:59 | NUR ---
RESTING QUIETLY OFF AND ON WITH EYES CLOSED, DOES NOT FOLLOW COMMANDS, PAIN MEDS GIVEN PER CPOT SCORE. SPOKE WITH SON HUBERT WHO HAS MANY VERY SPECIFIC QUESTIONS REGARDING OUTPUT, CHEST TUBE, WEIGHT, AND NEURO STATUS.
--- NOTE | 2021-01-03 10:01 | NUR ---
J tube difficult to flush, multiple attempts made to clear line by RN.
--- NOTE | 2021-01-03 10:28 | NUR ---
RN able to unclog J tube - TF restarted
--- NOTE | 2021-01-03 13:44 | NUR ---
This AM around 0800 Dr. Luke requested this RN page/call when family member is at bedside. RN paged at 1120 when family arrived. At 1330 family had to leave but is requesting a call from Dr. Luke since they have not spoken in person. CARSON Elaine number is updated in chart.
--- NOTE | 2021-01-03 22:12 | NUR ---
CALL TO DR MOYER TO MAKE AWARE THAT INCISION FROM JTUBE INSERTION HAS STEADY BLEEDING FROM INFERIOR ASPECT, DRESSING CHANGED 01/03 0500 SATURATED WHEN OBSERVED AT 2100 BY THIS RN. AFTER DRESSING CHANGED AT 2100, NOTED THAT ABD IS BEGINNING TO BE SATURATED AT APPROXIMATELY 2135. ALL THIS COMMUNICATED TO DR. MOYER; ORDERS TO CONT TO MONITOR AND CHANGE DRESSING AND HE WILL COME BY FIRST THING IN THE AM
[2021-01-04] VITALS (23 sets, daily range): BP systolic 127–164; BP diastolic 54–98
[2021-01-04 04:24] LABS: HEMATOCRIT 27.7 % (42.0-52.0); HEMOGLOBIN 9.1 gm/dL (14.0-18.0); MCHC 32.7 g/dL (28.0-37.0); MCV 91.8 fL (80.0-100.0); RBC 3.02 mil/uL (4.50-6.00); RDW 20.6 % (10.5-14.5); WBC 18.9 thou/uL (4.0-11.0)
[2021-01-04 04:30] LABS: CALCIUM 9.3 mg/dL (8.5-10.1); CREATININE 2.3 mg/dL (0.7-1.3); POTASSIUM 3.7 mmol/L (3.5-5.1)
--- NOTE | 2021-01-04 04:41 | NUR ---
APPEARS GENERALLY UNCOMFORTABLE AND IN PAIN, MIDLINE ABD DRESSING CHANGED X2 THIS SHIFT, SEE PREVIOUS NOTE. VSS, TOLERATING TUBE FEEDINGS, ABD IS SOFT TO PALPATION, NO HEMATOMA NOTED. MAKES EYE CONTACT, POSSIBLY NODS HEAD, IF SO, IT IS BARELY PERCEPTIBLE.
--- NOTE | 2021-01-04 05:35 | NUR ---
CHARGE PHONE WHEN ATTEMPTING TO TRANSFER CALL FROM [facility] TO THIS RN. ATTEMPTED CALL BACK, NO ANSWER
--- NOTE | 2021-01-04 05:55 | NUR ---
spoke with son lyssa, answered all questions within scope
--- NOTE | 2021-01-04 18:15 | NUR ---
PATIENT STABLE THROUGH OUT THE DAY. NOT REQUIRING ANY ICU GTTS. T-TUBE IN PLACE. 15L/40%. REMAINED OFF VENT ALL DAY. ADEQUATE URINE OUTPUT. TUBE FEEDINGS INFUSING AT GOAL RATE. DR. MOYER ROUNDED AND VISUALIZED ABDOMINAL INCISION SITE. REPLACED DRESSING. CHEST TUBE REMAINS TO [facility]. NEW SPUTUM SAMPLE SENT TO LAB. PREVIOUS SAMPLE REJECTED. [facility] FOR PAT[facility] PLAN TO DC TO LTAC WHEN ACCEPTED.
--- NOTE | 2021-01-04 19:07 | PATH ---
[facility] [address] [place] [address] PATHOLOGY RPT PROCEDURE Name: FRANCISCO CCAERES Room #: 241-P ADM IN M.R.#: [id number] Admission: 12/07/20 Date of : 38 Discharge: Report #: [id number] Path Case #: [id number] [facility] Accession Number: [id number] . 01 Material submitted: . gastrointestinal site - BX GASTRITIS R/O H PYLORI ISCHEMIA . 01 Clinical history: . R/O H PYLORI,ISCHEMIA . 02 Diagnosis: Gastric mucosa, gastritis, rule out H. pylori, ischemia, endoscopic biopsy: - Moderate reactive gastropathy with focal intestinal metaplasia. - No evidence of fibrin thrombi within lamina propria vessels. - Negative for atrophy or dysplasia. - Negative for Helicobacter pylori (properly controlled immunohistochemical stain performed). (IUV:pit; 01/04/2021) QTP 01/04/2021 1322 Local . 02 Electronically signed: . Angelia Otero MD, Pathologist NPI- [id number] . 01 Gross description: . Received in formalin labeled "Francisco Caceres, bx gastritis" is a campos-brown soft tissue fragment measuring 0.4 x 0.4 x 0.1 cm. The specimen is submitted entirely in A1. (MUNA; 12/31/2020) MUNA/MUNA 12/31/2020 2017 Local . 02 Pathologist provided ICD-10: K31.9 . 02 CPT . 967884, [id number] Specimen Comment: A courtesy copy of this report has been sent to [phone] Specimen Comment: [phone], , Specimen Comment: Report sent to , DR REDDY, DR ECHEVARRIA / Specimen Comment: DR CLARK Performed at: [address], [place] [id number] MD Ja Bryant MD Phone: [phone] Performed at: [address] [address] PATHOLOGY RPT PROCEDURE Name: FRANCISCO CACERES A Room #: 241-P ADM IN M.R.#: [id number] Admission: 12/07/20 Date of : 38 Discharge: Report #: [id number] Path Case #: [id number] [address] [facility] [place], [place] [id number] MD Angelia Otero MD Phone: [phone]
[2021-01-05] VITALS (34 sets, daily range): BP systolic 60–137; BP diastolic 29–62
--- NOTE | 2021-01-05 01:24 | NUR ---
AROUND MN, PT BEGAN BREATHING 35-40/MIN, APPEARING UNCOMFORTABLE. BL LUNG SOUNDS REMAIN THE SAME, CHECKED ABD DRESSING, CHEST TUBE DRESSING CHANGED TO ENSURE TUBE WAS NOT INFECTED, BP ELEVATED BUT HR REMAINED 70'S. APPROXIMATELY 20 MINUTES AFTER LEAVING ROOM, RT ENTERED AND CALLED THIS RN IN, LARGE AMT GREEN, MUCUS-LIKE LIQUID COMING FROM AROUND TRACH DOWN PT CHEST AND SHOULDER. MODERATE AMT SUCTIONED FROM PT MOUTH. TF IMMEDIATELY STOPPED, ABD IS MILDLY FIRM TO PALPATION, INCISION DOES NOT SEEM TO BE HOT TO TOUCH. PT GIVEN ZOFRAN AND SAT AT [address] CALL TO DR. SRINIVASAN AT 0120 TO NOTIFY OF CHANGE, PENDING STAT CXR AND KUB. ORDERS TO KEEP NPO, CANCEL TRANSFER ORDERS AND SEE WHAT LANRE SAYS. THIS RN DID ENSURE THAT DR. SRINIVASAN KNEW THAT CURRENTLY THERE IS STILL SMALL AMT OF A SLOW TRICKLE OF GREEN BILE COMING FROM AROUND TRACH SITE. SCANT AMT SUCTIONED FROM LUNGS.
[2021-01-05 04:24] LABS: HEMATOCRIT 30.2 % (42.0-52.0); HEMOGLOBIN 9.9 gm/dL (14.0-18.0); MCH 30.3 pg (26.0-34.0); MCHC 32.6 g/dL (28.0-37.0); MCV 92.9 fL (80.0-100.0); RBC 3.26 mil/uL (4.50-6.00); RDW 21.2 % (10.5-14.5); WBC 22.2 thou/uL (4.0-11.0)
[2021-01-05 04:59] LABS: CREATININE 1.8 mg/dL (0.7-1.3); POTASSIUM 3.6 mmol/L (3.5-5.1)
--- NOTE | 2021-01-05 06:28 | NUR ---
CONT TO SUCTION GREEN BILE OUT OF TRACH, SLIGHTLY DRIPPING OUT OF UNDERSIDE OF TRACH, BP SLOWLY DECREASING, RR IMPROVED.
[2021-01-05 15:50] LABS: ALBUMIN 2.6 g/dL (3.4-5.0); DIRECT BILIRUBIN 1.3 mg/dL (<0.1-0.2); TOTAL BILIRUBIN 2.1 mg/dL (0.2-1.0); TOTAL PROTEIN 5.6 g/dL (6.4-8.2)
--- NOTE | 2021-01-05 16:59 | NUR ---
VAT CONSULTED FOR A PICC FOR THIS PT WITH BILAT UE EDEMA AND VESSELS ARE NOT ADEQUATE FOR A PICC. AN ORDER TO PLACE A TICC FOR LT NEEDS IS MORE APPROPRIATE. PT CURRENTLY HAS A TL IJ
--- NOTE | 2021-01-05 18:27 | NUR ---
FAMILY AT BEDSIDE TODAY. BRONCOSCOPY TODAY. NO BM. PATENT NOT PROGRESSING TOWARDS DISMISSAL GOALS. TUBE FEEDINGS REAMIN ON HOLD. NO BM. AFEBRILE.
[2021-01-06] VITALS (24 sets, daily range): BP systolic 96–134; BP diastolic 43–56
[2021-01-06 04:49] LABS: ALBUMIN 2.5 g/dL (3.4-5.0); CALCIUM 8.8 mg/dL (8.5-10.1); CREATININE 1.7 mg/dL (0.7-1.3); POTASSIUM 3.8 mmol/L (3.5-5.1); TOTAL BILIRUBIN 1.7 mg/dL (0.2-1.0); TOTAL PROTEIN 5.4 g/dL (6.4-8.2)
[2021-01-06 04:51] LABS: HEMOGLOBIN 8.8 gm/dL (14.0-18.0); MCH 30.4 pg (26.0-34.0); MCHC 32.7 g/dL (28.0-37.0); MCV 92.9 fL (80.0-100.0); RBC 2.91 mil/uL (4.50-6.00); RDW 21.8 % (10.5-14.5); WBC 19.1 thou/uL (4.0-11.0)
[2021-01-06 10:02] LABS: COLOR YELLOW; TOTAL VOLUME 37 mL
[2021-01-06 10:03] LABS: CLARITY SLIGHTLY CLOUDY; SOURCE RIGHT CHEST
[2021-01-06 10:34] LABS: BF NUCLEATED CELLS 171 /mm3; BF RBC 970 /mm3
--- NOTE | 2021-01-06 12:33 | NUR ---
Updates provided to [facility], as they seeking auth. Son wanted to know who to call to get a tour of [facility], referred him to speak with fady.
[2021-01-06 12:35] LABS: BF MACROPHAGE 34 %; BF NEUTROPHILS 15 %
[2021-01-06 17:32] LABS: SOURCE THORACENTESIS
--- NOTE | 2021-01-06 18:43 | NUR ---
patient progressing towards dismissal goals to ltach. right thorcentesis today. 1.1L off patient. t piece worn 35% all day today. family at bedside today.
[2021-01-07] VITALS (26 sets, daily range): BP systolic 52–144; BP diastolic 16–65
[2021-01-07 05:27] LABS: HEMATOCRIT 26.4 % (42.0-52.0); HEMOGLOBIN 8.7 gm/dL (14.0-18.0); MCH 30.6 pg (26.0-34.0); MCHC 33.1 g/dL (28.0-37.0); MCV 92.4 fL (80.0-100.0); RBC 2.86 mil/uL (4.50-6.00); WBC 21.3 thou/uL (4.0-11.0)
[2021-01-07 05:39] LABS: CALCIUM 8.2 mg/dL (8.5-10.1); CREATININE 1.4 mg/dL (0.7-1.3); POTASSIUM 3.5 mmol/L (3.5-5.1)
--- NOTE | 2021-01-07 08:28 | P ---
[facility] [place] [address] PROCEDURE REPORT Name: DULCE CACERES Room #: 241-P ADM IN M.R.#: [id number] Admission: 12/07/20 Attend Phys: Qamar Shetty MD Discharge: Date of : 38 Report #: [id number] THIS REPORT FOR: cc: Jc Soto MD, Eric K. MD McElhinney, Christian C. MD ~ DOC #: [id number] cc: Solomon Caal MD, Santos Cohen MD, Micah Zavala MD [facility], MD Von Zuniga MD DATE OF SERVICE: 12/29/2020 PROCEDURE PERFORMED: Upper endoscopy with biopsies and bleeding control. HISTORY OF PRESENT ILLNESS: The patient is an 80-year-old male who underwent an upper endoscopy by myself for an upper GI bleed on 12/08/2020. He received 2 units of packed cells at that time, underwent an upper endoscopy that day showing large amount of blood within the stomach with clots. A single 1.5 cm ulcer was noted in the duodenal bulb. No active bleeding, no visible vessel that time. The following day, I proceeded with a repeat upper endoscopy. At that time, I was able to visualize a Dieulafoy lesion or a visible vessel and a small ulcer, likely source of recent bleeding. This was treated with epinephrine and 7-New Zealander bipolar cautery. No further bleeding was noted afterwards. The patient has been stable from a GI bleed standpoint for several weeks. Unfortunately, he remains on a ventilator with multiple medical problems. Plan is for tracheostomy by Dr. Solomon Caal today and then repeat upper endoscopy by myself with possible PEG tube placement. He has had a day and a half of dark stools recently. He did have a drop in his hemoglobin to 6.9 on 12/28/2020, he received 2 units of packed cells. Hemoglobin today is 8.0. Plan is for upper endoscopy as described above. DESCRIPTION OF PROCEDURE: The risks and benefits of the procedure were explained to the patient's son. Those risks including, but not limited to bleeding, perforation and the risk of sedation as well as potential risk of infection from PEG tube. He understood these risks and gave informed consent. The procedure was performed in the operating room. The patient is already intubated, is under general anesthesia, the patient is already on scheduled IV antibiotics. Next, using a standard Olympus upper endoscope, the scope was placed in the patient's mouth and advanced under direct vision through the esophagus, stomach and into the second portion of the duodenum. The OG tube was removed prior to placing the scope. The esophagus was normal. GE junction was normal. In the stomach, there was a moderate to significant gastritis diffusely throughout the fundus and body as well as the antrum. On retroflexion, the previous ulcer/Dieulafoy lesion was identified. It was bigger at this time, there was an ulcer of approximately 2 cm. There was no visible vessel. Near [address] [address] PROCEDURE REPORT Name: DULCE CACERES Room #: 241-P ADM IN M.R.#: [id number] Admission: 12/07/20 Attend Phys: Qamar Shetty MD Discharge: Date of : 38 Report #: [id number] this area was a small amount of oozing noted. This was treated with 7-New Zealander bipolar cautery. No evidence of bleeding after cauterization. I did obtain a couple biopsies of the gastric mucosa of the gastritis to rule out the possibility of H. pylori or ischemic changes. Again, no other active bleeding was noted other than the small area described above. The pylorus was normal. There was a duodenitis noted in the bulb, again noticed in the first portion of the duodenum was an ulcer approximately the same size, 1 cm. No active bleeding, but now there is evidence of narrowing or stricture in this area. I was able to pass the scope through this area. The second portion of the duodenum was normal. There was no evidence of bleeding in this area. The scope was then brought back up into the patient's stomach and the stomach was insufflated with air. Unfortunately, no good transillumination or palpable area was seen externally and the anterior abdominal wall to attempt a PEG tube placement. This was discussed with Dr. Caal who was present during the procedure. At this point, it was obvious, PEG tube would not be able to be placed and the scope was then withdrawn. My portion of the procedure was complete. The patient tolerated the procedure well. IMPRESSION: 1. Diffuse gastritis noted throughout the stomach. This was a new finding from previous upper endoscopy. 2. Larger ulcer, likely in this same area of previous Dieulafoy or previous ulcer in the gastric fundic area. On retroflexion, no evidence of active bleeding. 3. Small area of oozing and gastritis near the previous bleeding site. This was cauterized with 7-New Zealander bipolar cautery. No further bleeding noted. 4. Duodenitis. 5. Duodenal ulcer with stricture. RECOMMENDATIONS: 1. Await biopsy results. 2. Continue PPI therapy. 3. We will add Carafate either through a nasogastric tube or through a PEG tube that will be placed in the near future. Dr. Caal I discussed the possibility of placing a J-tube instead since he does have a stricture in his duodenal bulb. This would be planned in the near future by Dr. Caal. Thank you for allowing me to participate in his care. Von Coello MD [facility] [address] [place] [address] PROCEDURE REPORT Name: DULCE CACERES Room #: 241-P [facility] IN M.R.#: [id number] Admission: 12/07/20 Attend Phys: Qamar Shetty MD Discharge: Date of : 38 Report #: [id number] <ELECTRONICALLY SIGNED> By: Von Coello MD 01/07/21 0828 1405 0032 Von Coello MD /nt
--- NOTE | 2021-01-07 10:24 | NUR ---
VAT SPOKE TO DR BANGURA REGARDING ORDER PLACED ON 01/[address] LINE , PT HAS EDEMA OF ARMS AND VESSELS TOO SMALL FOR VAT TO PLACE. TO CALL IR THIS AM.
--- NOTE | 2021-01-07 12:18 | NUR ---
Chart review. Cm spoke salas martin at [facility]. [employer] still reviewing for LTAC requested auth. Chart copy requested. When [employer] gives auth. DC to [facility]. [facility] will need to transport. Bedside to call report. [facility] to call [facility] if get auth today, they can take today or sunday. [facility] no sunday admits. If no auth looking for possible sunday to dc to [facility]. At [place] beside nurse to call report to [phone], faxed dc orders to # [phone]
--- NOTE | 2021-01-07 16:02 | NUR ---
PATIENT ON T-PIECE PER TRACH, AWAKE AND TRACKS AROUND THE ROOM, NODS AT TIMES. VITALS STABLE. TUBEFEEDING PER J-TUBE (NOT AT GOAL YET). THIS AFTERNOON PATIENT'S SON CAME OUT OF ROOM TO GET RN'S ATTENTION THAT THERE WAS SECRETIONS IN THE T-PIECE TUBING. WHEN I WENT TO THE ROOM THE T-PIECE WAS DISCONNECTED FROM TRACH AND THE SON STATED THAT HE DISCONNECTED IT "BECAUSE IT WAS HARD TO WATCH", I TOLD HIM THAT HE IS NOT ALLOWED TO DISCONNECT ANY MEDICAL EQUIPMENT, I TOLD HIM THAT IF IT WAS HARD TO WATCH, HE COULD STEP OUT OF ROOM TO THE WAITING ROOM. HE STATED THAT HE UNDERSTOOD. I REPORTED THIS TO INFORMATION WRITER ARYAN Sanon
[2021-01-07 16:06] LABS: BODY FLUID ALBUMIN 1.3 g/dL (Not Estab.); BODY FLUID AMYLASE 13 U/L (()); BODY FLUID GLUCOSE 121 mg/dL (()); BODY FLUID LDH 85 IU/L (()); BODY FLUID PROTEIN 1.8 g/dL (())
[2021-01-08] VITALS (24 sets, daily range): BP systolic 91–133; BP diastolic 36–56
--- NOTE | 2021-01-08 00:04 | NUR ---
This RN called Dr De Paz at shift change to discuss concerns about tube feed aspiration. Tube feeding held, KUB ordered and mag citrate ordered. Orders in place. Will continue to monitor.
--- NOTE | 2021-01-08 04:24 | NUR ---
Patient still expelling copious amounts of vomitus out of mouth, and having green, dark brown content expelled from trachea and sides of trachea. This RN spoke with Dr. De Paz. Orders to place NG tube to decompress stomach. Large amount removed from stomach. Still draining from trachea and trach borders. Will continue to monitor.
[2021-01-08 06:03] LABS: CALCIUM 8.1 mg/dL (8.5-10.1); CREATININE 1.3 mg/dL (0.7-1.3); POTASSIUM 3.4 mmol/L (3.5-5.1)
--- NOTE | 2021-01-08 17:27 | NUR ---
PATIENT SLOWLY PROGRESSING TOWARDS THE PLAN OF CARE. NO NEW EMESIS. LESS AND LESS OUPUT OF NG TUBE.
[2021-01-09] VITALS (16 sets, daily range): BP systolic 76–164; BP diastolic 46–66
[2021-01-09 04:34] LABS: HEMOGLOBIN 8.1 gm/dL (14.0-18.0); MCH 29.9 pg (26.0-34.0); MCHC 32.2 g/dL (28.0-37.0); MCV 92.7 fL (80.0-100.0); RBC 2.7 mil/uL (4.50-6.00); RDW 21.5 % (10.5-14.5); WBC 20.6 thou/uL (4.0-11.0)
[2021-01-09 04:37] LABS: CALCIUM 7.9 mg/dL (8.5-10.1); CREATININE 1.2 mg/dL (0.7-1.3); POTASSIUM 3.2 mmol/L (3.5-5.1)
--- NOTE | 2021-01-09 07:00 | NUR ---
No significant event in this shift. Pt remain stable. ON CPAP at night. Secretion via trach seems to be less. O2 sat 100% on 35% FiO2. Remains NPO. CT and OGT are in placed and continue to function properly. No s/sx of any aspirate in this shift.
--- NOTE | 2021-01-09 13:36 | NUR ---
ASSUMED CARE AT 0600- PATIENT WAS ON THE VENTILATOR AT THE BEGINNING OF THE SHIFT. AFTER FIRST ROUNDS AT 0700 I PLACED THE PATIENT ON T-PIECE 35%. PATIENT HAS COPIOUS AMOUNTS OF SECRETIONS AND HAS A PRODUCTIVE COUGH. HE NEEDS OCCASSIONAL SUCTIONING TO AID IN CLEARANCE.
--- NOTE | 2021-01-09 18:21 | NUR ---
PATIENT TRANSFER FROM ICU TO [facility] AT 1630. AWAKE. ON 35% T TUBE HAS COPIOUS AMOUNTS WHITE THIN SPUTUM. VSS . LEFT CHEST TUBE INTACTED. TUBE FEDING VIS J TUBE. NG TUBE CLAMPED. FAMILY AT BEDSIDE. WILL KEEP MONITOR.
--- NOTE | 2021-01-09 23:25 | NUR ---
PT OPENS EYES SPONTANEOUSLY. OPENS MOUTH UPON COMMAND FOR SUCTIONING OR ORAL CARE. BP MODERATELY ELEVATED. METOPROLOL GIVEN PER J TUBE. RESIDUALS WNL. TF AT 10 ML PER HR. RT ATTEMPTED TO PLACE PT ON VENT WITH CPAP SETTINGS. PT DID NOT TOLERATE WEL HE BEGAN TO BREATHE FAST AND START COUGHING. PT'S SON REFUSED TO LET NS GIVE HALDOL OR MORPHINE TO HELP HIM CALM DOWN AND RELAX. DR SRINIVASAN NOTIFIED. LEFT PT ON T-TUBE 35%. PT IS MUCH CALMER AND BREATHING BETTER SAT 100%. CT INTACT TO WATER SEAL WITH SEROSANGINOUS DRAINAGE NOTED IN [facility]. WILL CONTINUE TO MONITOR PT FOR CHANGES.
[2021-01-10 00:24] VITALS: BP 140/63
[2021-01-10 04:59] VITALS: BP 137/50
[2021-01-10 06:11] LABS: CALCIUM 7.9 mg/dL (8.5-10.1); CREATININE 1.3 mg/dL (0.7-1.3); POTASSIUM 3.7 mmol/L (3.5-5.1)
--- NOTE | 2021-01-10 06:47 | NUR ---
PT PROGRESSING TOWARDS D/C GOALS. VSS LOW GRADE TEMP NOTED. SEE VS. PT HAS REMAINED ON T-TUBE ALL NIGHT AT 35% . RT SPOKE WITH DR SRINVIASAN REGARDING P NOT TOLERATING CPAP. HE IS MUCH CALMER AND LESS LABORED ON T-TUBE. RESIDUALS 0. TF INCREASED TO 20
[2021-01-10 07:43] VITALS: BP 154/58
[2021-01-10 11:11] VITALS: BP 167/59
--- NOTE | 2021-01-10 11:33 | NUR ---
SOLOMON reviewed chart and spoke with nursing and attending physician. Pt transferred to 3W from ICU. Pt is stable for discharge to [facility]. SOLOMON notified [facility] liaison, who requested updated clinical info to be faxed for review. Awaiting insurance authorization at this time. SOLOMON faxed requested info. SOLOMON is following to assist as needed with discharge planning.
[2021-01-10 15:41] VITALS: BP 137/59
--- NOTE | 2021-01-10 17:35 | NUR ---
ASSUMED PATIENT CARE AT 0700. AWAKE. TOLERATED ON 35% FI02 VIS T TUBE. TF UP TO 35ML/H. TOLERATED WELL, NO N/V. SUCTION NEED. GENERLIZED EDEMA. SLOWLY TOWARDS POC GOALS.
--- NOTE | 2021-01-10 18:06 | PATH ---
[facility] [address] [place] [address] PATHOLOGY RPT PROCEDURE Name: DULCE CACERES Room #: 361-P ADM IN M.R.#: [id number] Admission: 12/07/20 Date of : 38 Discharge: Report #: [id number] Path Case #: [id number] Note [facility] Accession Number: [id number] TESTS RESULT FLAG UNITS REF RANGE LAB Clinician Provided Cytology Information No. of containers..01 Other (Miscellaneous) Source: THORA DIAGNOSIS: 02 THORACENTESIS NEGATIVE FOR MALIGNANT EPITHELIAL CELLS. REACTIVE MESOTHELIAL CELLS ARE PRESENT. COMMENT: Examination shows collections of bland appearing cells forming occasional glands. Multiple properly controlled immunohistochemical stains are performed on the formalin fixed cell block. Few cells show strong reactivity with Calretinin as well as desmin consistent with reactive mesothelial cells. Matt-Ep4 is non-reactive. CD68 shows reactivity within numerous cells supporting macrophages within the fluid. Findings support no malignant epithelial cells within this fluid examined. (IUV/db; 01/10/2021) Pathologist ICD10: 02 J90 Signed out by: 02 Angelia Otero MD, Pathologist NPI- [id number] Performed by: 01 Porsche Dominguez, Tractor Crane Engineer ([facility]) Gross description: 01 10ML, CLEAR YELLOW, 1 TP 1CB /LCS 01/10/2021 1224 Local FLAG LEGEND: L-Low Normal,H-High Normal,LL-Alert Low,HH-Alert High <-Panic Low,>-Panic High,A-Abnormal,AA-Critical Abnormal Performed at: 01 [facility] [address] [place] [address] Ja Bryant MD, [address] [address] Angelia Otero MD, Specimen Comment: A courtesy copy of this report has been sent to [phone], [phone] [address] PATHOLOGY RPT PROCEDURE Name: DULCE CACERES Room #: 361-P [facility].#: [id number] Admission: 12/07/20 Date of : 38 Discharge: Report #: [id number] Path Case #: [id number] Specimen Comment: [id number], , Specimen Comment: Report sent to ,DR RDEDY,DR CLARK / DR ECHEVARRIA Performed at: 01 [facility] [address], [place], [place] [id number] MD Ja Bryant MD Phone: [phone]
[2021-01-10 19:50] VITALS: BP 119/61
[2021-01-11 00:55] VITALS: BP 126/56
[2021-01-11 05:25] VITALS: BP 130/55
[2021-01-11 05:38] LABS: ABSOLUTE NEUTROPHILS 15.3 thou/uL (1.4-8.2); BASOPHILS 0.1 % (0.0-2.0); HEMATOCRIT 22.3 % (42.0-52.0); HEMOGLOBIN 7.4 gm/dL (14.0-18.0); LYMPHOCYTES 4.1 % (24.0-44.0); MCH 30.4 pg (26.0-34.0); MCHC 33.1 g/dL (28.0-37.0); MCV 91.8 fL (80.0-100.0); PLATELET COUNT 244 thou/uL (150-400); POLYS 89.8 % (36.0-66.0); RBC 2.43 mil/uL (4.50-6.00); RDW 19.9 % (10.5-14.5)
--- NOTE | 2021-01-11 06:07 | NUR ---
PT PROGRESSING SLOWLY TOWARDS D/C GOALS. VSS. LOW GRADE TEMP. TOLERATED T-TUBE 35% ALL NIGHT LONG. SUCTIONING CLEAR SPUTUM PRN. TURNING Q 2 HRS.MOISTURE BARRIER TO BUTTOCKS. NSR ON MONITOR.
[2021-01-11 06:18] LABS: ALBUMIN 2.1 g/dL (3.4-5.0); CALCIUM 7.5 mg/dL (8.5-10.1); CREATININE 1.1 mg/dL (0.7-1.3); POTASSIUM 3.4 mmol/L (3.5-5.1); TOTAL BILIRUBIN 0.9 mg/dL (0.2-1.0); TOTAL PROTEIN 5.1 g/dL (6.4-8.2)
[2021-01-11 08:13] VITALS: BP 128/57
--- NOTE | 2021-01-11 13:35 | NUR ---
SOLOMON reviewed chart and spoke with nursing and attending physician. Pt is medically stable for discharge to [facility]. Pt continues on IV steroids and IV lasix. SOLOMON discussed case with [facility] liaison, who states that insurance should make a determination today. SOLOMON met with pt and son, Shane, at bedside. Shane verbalized understanding and is agreeable with plan for pt to discharge to [facility] when insurance auth has been obtained. SOLOMON is following to assist as needed with discharge planning.
[2021-01-11 16:04] VITALS: BP 128/69
--- NOTE | 2021-01-11 18:18 | NUR ---
ASSUMED PATIENT CARE AT 0700. AWAKE. HAD THREE LIQUID STOOL. SUCTION NEEDS. WILL CHECH STOOL CIDFF. GENERLIZED EDEMA. SOLWLY TOWARDS POC GOALS.
[2021-01-11 19:30] VITALS: BP 136/58
[2021-01-12 06:00] VITALS: BP 120/61
[2021-01-12 07:29] VITALS: BP 130/56
[2021-01-12 11:14] VITALS: BP 146/66
[2021-01-12] MEDS ORDERED: PERIDEX 0.12%473 M1 MUCOUS MEM (11:25)
[2021-01-12] MEDS ORDERED: ACETAMINOPHEN325 M1 PER TUBE (11:25)
[2021-01-12] MEDS ORDERED: ONDANSETRON4 MG/2 M1 IV PUSH (11:25)
[2021-01-12] MEDS ORDERED: ZYPREXA 5 MG TAB5 M1 PER TUBE (11:25)
[2021-01-12] MEDS ORDERED: SOLU-MEDRO40 MG/1 M1 IV PUSH (11:25)
[2021-01-12] MEDS ORDERED: METOPROLOL TART25 MG PER TUBE (11:25)
[2021-01-12] MEDS ORDERED: PEDIA-LAX50 MG/15 M PER TUBE (11:25)
[2021-01-12] MEDS ORDERED: POTASSIUM CHLO20 MEQ PER TUBE (11:25)
[2021-01-12] MEDS ORDERED: FUROSEMIDE20 MG/2 ML IV PUSH (11:25)
[2021-01-12] MEDS ORDERED: PEPCID20 MG PER TUBE (11:25)
[2021-01-12] MEDS ORDERED: HYDRALAZIN20 MG/1 ML IV PUSH (11:25)
[2021-01-12] MEDS ORDERED: Transderm-Scop 1MG/7 TRANSDERM (11:25)
[2021-01-12] MEDS ORDERED: AKWA TEARS OIN3.5 GM OPHTHALMIC (11:25)
[2021-01-12] MEDS ORDERED: FLUSH IV (11:25)
--- NOTE | 2021-01-12 12:33 | NUR ---
CARE ASSUMED THIS AM, ALERT TO SELF. ACCORDING TO SON PT ABLE TO FOLLOW COMMANDS. PT NODS HEAD BUT NOT APPROPRIATELY, UNABLE TO FOLLOW SIMPLE COMMADS. TRACH IN PLACE WITH 35% OF OXYGEN. J TUBE IN PLACE WITH PEG TUBE RUNNING AT 60ML/HR, GOAL AT 65ML. DRISCOLL IN PLACE, PATENT AND SECURED. ANTICPATING FOR D/C TODAY TO LTAC. FALL PRECAUTIONS IN PLACE. PT SON UPDATED ON CARE, DENIES ANY QUESTION AT MOMENT.
[2021-01-12 12:55] LABS: ABSOLUTE NEUTROPHILS 17.5 thou/uL (1.4-8.2); BASOPHILS 0.2 % (0.0-2.0); EOSINOPHILS 0.4 % (0.0-3.0); HEMATOCRIT 24.3 % (42.0-52.0); LYMPHOCYTES 1.2 % (24.0-44.0); MCH 30.2 pg (26.0-34.0); MCHC 32.8 g/dL (28.0-37.0); MCV 92.2 fL (80.0-100.0); MONOCYTES 2.4 % (1.0-8.0); PLATELET COUNT 275 thou/uL (150-400); POLYS 95.8 % (36.0-66.0); RBC 2.63 mil/uL (4.50-6.00); RDW 20.4 % (10.5-14.5); WBC 18.3 thou/uL (4.0-11.0)
[2021-01-12 13:11] LABS: ALBUMIN 2.4 g/dL (3.4-5.0); CALCIUM 7.7 mg/dL (8.5-10.1); CREATININE 1.2 mg/dL (0.7-1.3); POTASSIUM 3.8 mmol/L (3.5-5.1); TOTAL BILIRUBIN 0.7 mg/dL (0.2-1.0); TOTAL PROTEIN 5.7 g/dL (6.4-8.2)
--- NOTE | 2021-01-12 13:38 | NUR ---
DISCHARGE NOTE: SW reviewed chart and spoke with nursing and attending physician. Attending physician completed peer to peer review with [employer] physician. LTAC auth provided. SOLOMON notified Praveena at [facility]. [facility] is able to accept pt today. Request for transportation to be arranged for 1300. SOLOMON arranged ambulance transportatio via [facility] at 1300. SOLOMON met with pt and son at bedside to provide update. Both aware and in agreement with discharge plan. Discharge ppwk faxed to [facility]. Received confirmation. Nursing provided with number to call report. Chart copy requested. No additional SW needs identified at this time, but is available to assist should needs arise.
[2021-01-12 15:21] VITALS: BP 152/66
== END 2021-01-12 16:32 | DRG 3 ==
LOC: ER 15:42 → 2N 17:48 → ICU 17:48 → EROBS 17:48 → 2N 19:36 → ICU 12-08 15:58 → 3W 01-09 16:06
PROVIDERS: Anesthesiology; Emergency Medicine; Hospitalist; Internal Medicine; Internal Medicine Pulmonary Disease; Nurse Practitioner; Nurse Practitioner Family; Pediatrics; Specialist; ADMIT Hospitalist; ATTEND Hospitalist
PROC: 0W3P8ZZ Control Bleeding in Gastrointestinal Tract, Via Natural or Artificial Opening Endoscopic (ICD-10-PCS; 2020-12-09)
PROC: 0BH17EZ Insertion of Endotracheal Airway into Trachea, Via Natural or Artificial Opening (ICD-10-PCS; 2020-12-14)
PROC: 5A1955Z Respiratory Ventilation, Greater than 96 Consecutive Hours (ICD-10-PCS; 2020-12-14)
PROC: 0W9930Z Drainage of Right Pleural Cavity with Drainage Device, Percutaneous Approach (ICD-10-PCS; 2020-12-21)
PROC: 0W9B30Z Drainage of Left Pleural Cavity with Drainage Device, Percutaneous Approach (ICD-10-PCS; 2020-12-21)
PROC: 0B9G8ZX Drainage of Left Upper Lung Lobe, Via Natural or Artificial Opening Endoscopic, Diagnostic (ICD-10-PCS; 2020-12-25)
PROC: 30233N1 Transfusion of Nonautologous Red Blood Cells into Peripheral Vein, Percutaneous Approach (ICD-10-PCS; 2020-12-28)
PROC: 0DB68ZX Excision of Stomach, Via Natural or Artificial Opening Endoscopic, Diagnostic (ICD-10-PCS; principal; 2020-12-29)
PROC: 0B110F4 Bypass Trachea to Cutaneous with Tracheostomy Device, Open Approach (ICD-10-PCS; 2020-12-29)
PROC: 0W3P8ZZ Control Bleeding in Gastrointestinal Tract, Via Natural or Artificial Opening Endoscopic (ICD-10-PCS; 2020-12-29)
PROC: 0DHA0UZ Insertion of Feeding Device into Jejunum, Open Approach (ICD-10-PCS; 2020-12-31)
PROC: 0DPD4UZ Removal of Feeding Device from Lower Intestinal Tract, Percutaneous Endoscopic Approach (ICD-10-PCS; 2020-12-31)
PROC: 0DJW0ZZ Inspection of Peritoneum, Open Approach (ICD-10-PCS; 2020-12-31)
PROC: 5A09357 Assistance with Respiratory Ventilation, Less than 24 Consecutive Hours, Continuous Positive Airway Pressure (ICD-10-PCS; 2021-01-05)
PROC: 0B9F8ZZ Drainage of Right Lower Lung Lobe, Via Natural or Artificial Opening Endoscopic (ICD-10-PCS; 2021-01-05)
PROC: 5A09357 Assistance with Respiratory Ventilation, Less than 24 Consecutive Hours, Continuous Positive Airway Pressure (ICD-10-PCS; 2021-01-06)
PROC: 0W993ZZ Drainage of Right Pleural Cavity, Percutaneous Approach (ICD-10-PCS; 2021-01-06)
PROC: 02HV33Z Insertion of Infusion Device into Superior Vena Cava, Percutaneous Approach (ICD-10-PCS; 2021-01-07)
PROC: 0JH63XZ Insertion of Tunneled Vascular Access Device into Chest Subcutaneous Tissue and Fascia, Percutaneous Approach (ICD-10-PCS; 2021-01-07)
PROC: B548ZZA Ultrasonography of Superior Vena Cava, Guidance (ICD-10-PCS; 2021-01-07)
PROC: 5A09357 Assistance with Respiratory Ventilation, Less than 24 Consecutive Hours, Continuous Positive Airway Pressure (ICD-10-PCS; 2021-01-07)
PROC: 5A09357 Assistance with Respiratory Ventilation, Less than 24 Consecutive Hours, Continuous Positive Airway Pressure (ICD-10-PCS; 2021-01-08)
PROC: 5A09357 Assistance with Respiratory Ventilation, Less than 24 Consecutive Hours, Continuous Positive Airway Pressure (ICD-10-PCS; 2021-01-09)
DX: K25.4 Chronic or unspecified gastric ulcer with hemorrhage (principal); G92 Toxic encephalopathy; R65.20 Severe sepsis without septic shock; I50.43 Acute on chronic combined systolic (congestive) and diastolic (congestive) heart failure; N17.0 Acute kidney failure with tubular necrosis; J15.211 Pneumonia due to Methicillin susceptible Staphylococcus aureus; D62 Acute posthemorrhagic anemia; K31.5 Obstruction of duodenum; D68.59 Other primary thrombophilia; I48.21 Permanent atrial fibrillation; I13.0 Hypertensive heart and chronic kidney disease with heart failure and stage 1 through stage 4 chronic kidney disease, or unspecified chronic kidney disease; E87.0 Hyperosmolality and hypernatremia; E46 Unspecified protein-calorie malnutrition; J44.1 Chronic obstructive pulmonary disease with (acute) exacerbation; K29.71 Gastritis, unspecified, with bleeding; K29.81 Duodenitis with bleeding; K26.4 Chronic or unspecified duodenal ulcer with hemorrhage; K31.82 Dieulafoy lesion (hemorrhagic) of stomach and duodenum; I25.10 Atherosclerotic heart disease of native coronary artery without angina pectoris; E78.5 Hyperlipidemia, unspecified; I49.5 Sick sinus syndrome; N18.2 Chronic kidney disease, stage 2 (mild); I25.5 Ischemic cardiomyopathy; Z60.2 Problems related to living alone; R53.81 Other malaise; F41.9 Anxiety disorder, unspecified; I95.9 Hypotension, unspecified; D72.829 Elevated white blood cell count, unspecified; E87.5 Hyperkalemia; R41.0 Disorientation, unspecified; Z79.01 Long term (current) use of anticoagulants; Z95.5 Presence of coronary angioplasty implant and graft; I25.2 Old myocardial infarction; Z86.73 Personal history of transient ischemic attack (TIA), and cerebral infarction without residual deficits; Z68.25 Body mass index [BMI] 25.0-25.9, adult; Z85.3 Personal history of malignant neoplasm of breast; Z85.72 Personal history of non-Hodgkin lymphomas; Z88.8 Allergy status to other drugs, medicaments and biological substances; Z92.21 Personal history of antineoplastic chemotherapy; Z92.3 Personal history of irradiation; Z79.82 Long term (current) use of aspirin; Z79.899 Other long term (current) drug therapy; Z95.0 Presence of cardiac pacemaker; Z87.891 Personal history of nicotine dependence; Z82.49 Family history of ischemic heart disease and other diseases of the circulatory system; Z20.822 Contact with and (suspected) exposure to COVID-19
CPT/HCPCS: 10078; 10081; 10879; 50101; 50386; 50403; 50411; 50550; 50555; 50558; 51412; 51489; 52265; 53307; 53310; 54022; 55326; 56462; 56525; 56526; 58574; 62110; 62900; 70005; 85076